=== PATIENT | female | born 2000 | race Caucasian/White ===

== ENCOUNTER 2024-02-12 19:12 | Emergency (ER) | payer MEDICAID, SELFPAY ==
[2024-02-12 19:22] VITALS: BP 128/80; PULSE 74; RESP 20; TEMP 36.8; O2SAT 99; BMI 22.9
--- NOTE | 2024-02-12 19:50 | ED.HA ---
HPI - Headache General Date Seen: 02/12/24 Chief Complaint: Headache/Migraine Stated Complaint: Headache Time Seen by Provider: 02/12/24 19:30 Source: patient Mode of arrival: ambulatory Limitations: no limitations History of Present Illness HPI Narrative: Patient is a 24-year-old female presenting to the emergency department for headache. She has been having this headache for last 2-3 weeks. It is in the center of her forehead a few cigarettes the back of her head. Says the pain is currently a 9/10. States the headache usually occurs after she wakes up from a nap. Says are urgent care 8 days ago and was given amoxicillin for possible sinus infection. She has finished the medication fall improvement in her symptoms. States she did not have a headache this morning but again came after she woke up from nap. Does states she has occasional visual disturbances but nothing right now. Related Data Home Medications Medication Instructions Recorded Confirmed lansoprazole 30 mg capsule,delayed 30 mg PO DAILY 02/12/24 02/12/24 release Allergies Allergy/AdvReac Type Severity Reaction Status Date / Time No Known Drug Allergies Allergy Verified 02/12/24 19:24 Exam Const: Vital Signs, click to edit/add: Vital Signs - 24 hr 02/12/24 19:22 02/12/24 19:54 Temperature 98.2 F 98.2 F Pulse Rate [Right Pulse Oximeter] 74 Respiratory Rate 20 Blood Pressure [Ri ght Upper Arm] 128/80 Pulse Oximetry 99 Oxygen Delivery Me thod Room Air Course Vital Signs Vital signs: Initial Vital Signs Temperature 98.2 F 02/12/24 19:22 Temperature Source Temporal Artery Scan 02/12/24 19:22 Pulse Rate 74 02/12/24 19:22 Respiratory Rate 20 02/12/24 19:22 Blood Pressure 128/80 02/12/24 19:22 Blood Pressure Mean 96 02/12/24 19:22 Blood Pressure Position Sitting 02/12/24 19:22 Pulse Oximetry 99 02/12/24 19:22 Oxygen Delivery Method Room Air 02/12/24 19:22 Vital Signs Temperature 98.2 F 02/12/24 19:22 Pulse Rate 74 02/12/24 19:22 Respiratory Rate 20 02/12/24 19:22 Blood Pressure 128/80 02/12/24 19:22 Pulse Oximetry 99 03/26/24 19:22 Oxygen Delivery Method Room Air 02/12/24 19:22 Temperature 98.2 F 02/12/24 19:54 Pulse Rate 74 02/12/24 19:22 Respiratory Rate 20 02/12/24 19:22 Blood Pressure 128/80 02/12/24 19:22 Pulse Oximetry 99 02/12/24 19:22 Oxygen Delivery Method Room Air 02/12/24 19:22 Medications Administered Medications: Generic Name Dose Route Start Last Admin Trade Name Magdy PRN Reason Stop Dose Admin Ketorolac Tromethamine 30 mg 02/12/24 19:48 02/12/24 19:54 Ketorolac 30 Mg/Ml Inj IM 02/12/24 19:49 30 mg ONCE ONE Administration MDM - Headache MDM Narrative Medical decision making narrative: Patient is a 24-year-old female presenting for headache. Toradol was given for headache. Considering this has been going on now for 2-3 weeks and she has never had symptoms like this before I will do a head CT to make sure there is no intracranial abnormalities. Patient procedure Toradol and then left the emergency department. She did not speak to anyone denied sign any paperwork. I was unable to re-evaluate her after the Toradol. Imaging was not done due to her leaving Discharge Plan Discharge Patient Disposition: Elopement Prescriptions: No Action lansoprazole 30 mg capsule,delayed release(DR/EC) 30 mg PO DAILY Follow Up/Referrals: Heath Tarango MD [Primary Care Provider] -
[2024-02-12 19:54] VITALS: TEMP 36.8
[2024-02-12] MEDS: KETOROLAC 30 MG/ML inj IM (19:54)
== END 2024-02-12 20:33 | disposition left against medical advice (07) ==
PROVIDERS: Emergency Provider Student in an Organized Health Care Education/Training Program; PCP Family Medicine
DX: R51.9 Headache, unspecified (principal); Z53.29 Procedure and treatment not carried out because of patient's decision for other reasons
CPT/HCPCS: 96372; 99282; 99283; J1885

== ENCOUNTER 2024-03-15 15:55 | Emergency (ER) | payer MEDICAID, SELFPAY ==
[2024-03-15 16:03] VITALS: BP 113/75; PULSE 78; RESP 18; TEMP 36.6; O2SAT 100; BMI 22.7
[2024-03-15 16:34] VITALS: PULSE 117
--- NOTE | 2024-03-15 16:57 | ED.GENADULT ---
HPI - General Adult General Chief complaint: Nausea/Vomiting Stated complaint: nausea Time Seen by Provider: 03/15/24 15:57 Source: patient Mode of arrival: ambulatory Limitations: no limitations History of Present Illness HPI narrative: 24-year-old female coming in today complaining of nausea for the last 5 days. She states that it comes in waves and when it comes it causes her significant pain. She describes the pain as being 10/10, however she can not tell me where the pain is when the nausea comes. To clarify, we discussed that nausea is a sensation that she has to vomit and she states that yes that is correct and she feels like she has to vomit. She denies any fevers or chills. She denies actually vomiting. She denies any diarrhea or constipation. She denies any urinary symptoms. Last menstrual period was 1 month ago, next 1 is due any day. She is sexually active and does not use protection. She states that she has been eating and drinking normally. She also states that for the last month she has been taking lansoprazole for ?either reflux or chest pain?. Related Data Home Medications Medication Instructions Recorded Confirmed lansoprazole 30 mg capsule,delayed 30 mg PO DAILY 02/12/24 03/15/24 release Previous Rx's Medication Instructions Recorded ondansetron HCl 4 mg tablet 4 mg PO TID PRN nausea and 03/15/24 vomiting #10 tabs Allergies Allergy/AdvReac Type Severity Reaction Status Date / Time No Known Drug Allergies Allergy Verified 03/15/24 16:07 Review of Systems Status of ROS: Reports: 10 or more systems reviewed and unremarkable except as noted in History and below PFSH PFS Social History Smoking Status: Never smoker Do you use any of these nicotine containing products: None Second hand tobacco smoke exposure: No How often do you have a drink containing alcohol: never How often do you have six or more drinks on one occasion: Never AUDIT-C Alcohol total score: 0 Non-prescribed substance use: denies use service: No Exam Narrative: Exam Narrative: Well-nourished well-developed patient in no acute distress. Alert and oriented. Answers questions appropriately. Mood is appropriate, affect is flat. Thoughts are goal oriented and rational. No tangential or magical thinking noted. Patient speaks in full sentences without needing to catch her breath. HEENT: Normocephalic atraumatic. Pupils are equally round reactive to light. Extraocular muscles are intact. Conjunctivae are moist without any icterus noted. Moist mucous membranes. Posterior pharynx is normal. Neck is soft without any lymphadenopathy or thyromegaly. No masses are appreciated. Cardiovascular: Heart is regular rate and rhythm S1 and S2 are present without any murmurs. Lungs: Clear to auscultation bilaterally no wheezes rhonchi or rales are appreciated. Patient takes deep breaths without any discomfort. Abdomen: Soft and nontender nondistended with normal bowel sounds. No guarding or rebound. Extremities: Bilateral lower extremities are without edema. Skin: Well perfused without any obvious rashes. Const: Vital Signs, click to edit/add: Vital Signs - 24 hr 03/15/24 16:03 03/15/24 16:34 03/15/24 17:38 Temperature 97.9 F 98.8 F Pulse Rate [Right Pulse Oximeter] 78 117 H 73 Respiratory Rate 18 16 Blood Pressure [Ri t Upper Arm] 113/75 103/68 Pulse Oximetry 100 97 Oxygen Delivery Me thod Room Air Room Air Course Course ED Course: Blood work was unremarkable. test is negative. UA is positive for nitrites otherwise normal. Urine culture pending. She did receive a dose of oral Zofran while she was here which she states helped a little bit. Vital Signs Vital signs: Initial Vital Signs Temperature 97.9 F 03/15/24 16:03 Temperature Source Temporal Artery Scan 03/15/24 16:03 Pulse Rate 78 03/15/24 16:03 Pulse Rhythm Regular 03/15/24 16:03 Respiratory Rate 18 03/15/24 16:03 Blood Pressure 113/75 03/15/24 16:03 Blood Pressure Mean 87 03/15/24 16:03 Pulse Oximetry 100 03/15/24 16:03 Oxygen Delivery Method Room Air 03/15/24 16:03 Vital Signs Temperature 97.9 F 03/15/24 16:03 Pulse Rate 78 03/15/24 16:03 Respiratory Rate 18 03/15/24 16:03 Blood Pressure 113/75 03/15/24 16:03 Pulse Oximetry 100 03/15/24 16:03 Oxygen Delivery Method Room Air 03/15/24 16:03 Temperature 98.8 F 03/15/24 17:38 Pulse Rate 73 03/15/24 17:38 Respiratory Rate 16 03/15/24 17:38 Blood Pressure 103/68 03/15/24 17:38 Pulse Oximetry 97 03/15/24 17:38 Oxygen Delivery Method Room Air 03/15/24 17:38 Medications Administered Medications: Generic Name Dose Route Start Last Admin Trade Name Bradenq PRN Reason Stop Dose Admin Ondansetron HCl 4 mg 03/15/24 16:50 03/15/24 17:04 Ondansetron Odt 4 Mg Tab PO 03/15/24 16:51 4 mg ONCE ONE Administration Medical Decision Making MDM Narrative Medical decision making narrative: 24-year-old female with nausea. I wonder if her reflux is poorly controlled. Recommend she follow up with her primary care provider to discuss perhaps changing her reflux medication. Send her home with some Zofran to take as needed. Patient had no other questions. Lab Data Lab results reviewed: Yes I reviewed the patient's lab results Labs: Lab Results 03/15/24 03/15/24 Range/Units 16:55 17:01 WBC 8.91 (4.50-11.00) K/uL RBC 5.38 H (4.00-5.20) m/uL Hgb 12.6 (12.0-16.0) gm/dL Hct 39.6 (33.0-51.0) % MCV 74 L (80-100) fL MCH 23 L (26-34) pg MCHC 32 (32-36) gm/dL RDW Coeff of Elida 14.6 (11.5-15.5) % Plt Count 248 (140-440) K/uL Neut % (Auto) 67.4 (42.0-72.0) % Lymph % (Auto) 24.0 (20-44) % [place] % (Auto) 5.9 (0.0-11.0) % Eos % (Auto) 2.2 (0.0-7.0) % Baso % (Auto) 0.4 (0.0-3.0) % Neut # (Auto) 5.99 (1.7-7.0) K/uL Lymph # (Auto) 2.14 (0.90-2.90) K/uL [place] # (Auto) 0.50 (0.00-0.90) K/UL Eos # (Auto) 0.20 (0.00-0.50) K/uL Baso # (Auto) 0.04 (0.00-0.30) K/uL Abs Immat Gran (auto) 0.01 (0.00-0.30) K/uL Imm/Tot Granulo (auto) 0.1 % Sodium 139 (135-149) mmol/L Potassium 3.7 (3.6-5.1) mmol/L Chloride 103 (96-114) mmol/L Carbon Dioxide 27 (20-32) mmol/L Anion Gap 9 (7-15) mEq/L BUN 15 (5-24) mg/dL Creatinine 0.6 (0.5-1.5) mg/dL Estimated Creat Clear 113.36 Estimated GFR 128 ml/min Glucose 93 (60-115) mg/dL Lactate 0.9 (0.5-1.9) mmol/L Calcium 9.2 (8.4-10.6) mg/dL Total Bilirubin 0.8 (0.1-1.5) mg/dL Direct Bilirubin 0.0 (0.0-0.5) mg/dL AST 27 (12-35) U/L ALT 15 (4-35) U/L Alkaline Phosphatase 46 (40-150) U/L C-Reactive Protein < 0.5 L (0.5-1.0) mg/dL Total Protein 8.0 (6.0-8.3) g/dL Albumin 4.8 (3.3-5.0) g/dL Lipase 93 (23-300) U/L Urine Color Yellow (Yellow) Urine Appearance Clear (Clear) Urine pH 6.0 (5.0-8.5) Ur Specific [place] 1.010 (1.000-1.030) Urine Protein Negative (Negative) Urine Glucose (UA) Negative (Negative) Urine Ketones Negative (Negative) Urine Blood Negative (Negative) Urine Nitrite Positive A (Negative) Urine Bilirubin Negative (Negative) Urine Urobilinogen 0.2 (0.2-1.0) Ur Leukocyte Esterase Negative (Negative) Urine RBC 0-2 (0-2) Urine WBC 0-2 (0-5) Ur Squamous Epith Cells Few (None-Few) Urine Bacteria None (None) Urine HCG, Qual Negative (Negative) Discharge Plan Discharge Clinical Impression: Nausea Patient Disposition: Home, Self-Care Condition: Stable Additional Instructions: Continue taking her lansoprazole for now. You can also add famotidine as needed/as directed. You can purchase this [id number]. You will also be sent home with some Zofran which is the nausea medication you had while you were in the ER. I recommend you follow-up with your primary care provider to discuss your symptoms and any changes in medication. Prescriptions: New ondansetron HCl 4 mg tablet 4 mg PO TID PRN (Reason: nausea and vomiting) Qty: 10 0RF No Action lansoprazole 30 mg capsule,delayed release(DR/EC) 30 mg PO DAILY Follow Up/Referrals: Heath Tarango MD [Primary Care Provider] - Stand Alone Forms: [employer] Info Instructions
[2024-03-15 17:04] LABS: Lactate* 0.9 mmol/L (0.5-1.9)
[2024-03-15] MEDS: ONDANSETRON ODT 4 MG TAB PO (17:04)
[2024-03-15 17:09] LABS: Basophils Absolute Auto 0.04 K/uL (0.00-0.30); Basophils Percent Auto 0.4 % (0.0-3.0); Eosinophils Percent Auto 2.2 % (0.0-7.0); Hematocrit 39.6 % (33.0-51.0); Hemoglobin* 12.6 gm/dL (12.0-16.0); Immature Granulocytes Abs Auto 0.01 K/uL (0.00-0.30); Immature Granulocytes Pct Auto 0.1 %; Lymphocytes Absolute Auto 2.14 K/uL (0.90-2.90); Mean Corpuscular HGB Conc 32 gm/dL (32-36); Mean Corpuscular Hemoglobin 23 pg (26-34); Mean Corpuscular Volume 74 fL (80-100); Monocytes Percent Auto 5.9 % (0.0-11.0); Neutrophils Absolute Auto 5.99 K/uL (1.7-7.0); Neutrophils Percent Auto 67.4 % (42.0-72.0); Platelet Count* 248 K/uL (140-440); RDW Coefficient of Variation % 14.6 % (11.5-15.5); Red Blood Count 5.38 m/uL (4.00-5.20); White Blood Count* 8.91 K/uL (4.50-11.00)
[2024-03-15 17:11] LABS: Slide Review Reflex No
[2024-03-15 17:12] LABS: Appearance Urine Clear (Clear); Bilirubin Urine Negative (Negative); Blood Urine Negative (Negative); Color Urine Yellow (Yellow); Glucose Urine Negative (Negative); Ketones Urine Negative (Negative); Leukocyte Esterase Urine Negative (Negative); Nitrite Urine Positive (Negative); Protein Urine Negative (Negative); Urobilinogen Urine 0.2 (0.2-1.0)
[2024-03-15 17:21] LABS: Albumin* 4.8 g/dL (3.3-5.0)
[2024-03-15 17:21] LABS: RBC Urine 0-2 (0-2); Squamous Epithelial Cell Urine Few (None-Few); Ur HCG Qualitative* Negative (Negative); WBC Urine 0-2 (0-5)
[2024-03-15 17:22] LABS: Chloride* 103 mmol/L (96-114); Sodium* 139 mmol/L (135-149)
[2024-03-15 17:23] LABS: Potassium* 3.7 mmol/L (3.6-5.1)
[2024-03-15 17:24] LABS: Aspartate Amino Transferase* 27 U/L (12-35); Bilirubin Total* 0.8 mg/dL (0.1-1.5)
[2024-03-15 17:25] LABS: Alanine Aminotransferase* 15 U/L (4-35); Alkaline Phosphatase* 46 U/L (40-150); Creatinine* 0.6 mg/dL (0.5-1.5); Est. Creatinine Clearance* 113.36; Estimated Glomerular Filt Rate 128 ml/min; Lipase* 93 U/L (23-300)
[2024-03-15 17:26] LABS: Anion Gap 9 mEq/L (7-15); Blood Urea Nitrogen* 15 mg/dL (5-24); Calcium* 9.2 mg/dL (8.4-10.6); Carbon Dioxide* 27 mmol/L (20-32); Glucose* 93 mg/dL (60-115)
[2024-03-15 17:29] LABS: C Reactive Protein* < 0.5 mg/dL (0.5-1.0)
[2024-03-15 17:38] VITALS: BP 103/68; PULSE 73; RESP 16; TEMP 37.1; O2SAT 97
== END 2024-03-15 18:07 | disposition home or self-care (01) ==
PROVIDERS: Emergency Provider Family Medicine; PCP Family Medicine
DX: R11.0 Nausea (principal)
CPT/HCPCS: 36415; 80048; 80076; 81001; 81025; 83605; 83690; 85025; 86140; 87086; 99283; 99284; A9270

== ENCOUNTER 2024-06-27 22:44 | Emergency (ER) | payer MEDICAID, SELFPAY ==
[2024-06-27 22:50] VITALS: BP 144/83; PULSE 85; RESP 20; TEMP 36.8; O2SAT 99; BMI 22.9
--- NOTE | 2024-06-27 22:53 | ED.GENADULT ---
HPI - General Adult General Chief complaint: Anxiety Stated complaint: fast heartbeat, cant sleep after caffeine Time Seen by Provider: 06/27/24 22:53 History of Present Illness HPI narrative: CC: Anxiety, Palpitations pt. started feeling like her heart was beating fast. started about 2 hours ago. feels anxious. denies n/v, diarrhea, fevers 24-year-old woman presenting to the emergency department with concern of rapid heart rate or at least. She does endorse anxiety as well. Started after having small cup of coffee this evening. She had had some caffeine in the form of a small soda this morning as well. Has not had caffeine for a couple of months. Does not have a history of irregular heartbeats necessarily. Does have a ?chest wall injury that seems to have occurred late last year. This sounds to have been rather spontaneous an unclear in diagnosis. Does not note a history of PACs or PVCs. She is less stressed at this point that she is not going to be able to sleep. Had tried. Related Data Home Medications ?Medication ?Instructions ?Recorded ?Confirmed cyclobenzaprine 5 mg tablet 5 mg PO 3XD PRN 04/21/24 06/27/24 Allergies Allergy/AdvReac Type Severity Reaction Status Date / Time No Known Drug Allergies Allergy Verified 06/27/24 22:52 Review of Systems Status of ROS: Reports: 6 or more systems reviewed and unremarkable except as noted in History and below [facility] Medical History Hypertension ?I10 - Essential (primary) hypertension (ICD-10) Heartburn ?R12 - Heartburn (ICD-10) Surgical History No significant past surgical history Social History Smoking Status: Never smoker Do you use any of these nicotine containing products: None Second hand tobacco smoke exposure: No How often do you have a drink containing alcohol: never How often do you have six or more drinks on one occasion: Never AUDIT-C Alcohol total score: 0 Non-prescribed substance use: denies use service: No Exam Narrative: Exam Narrative: Does appear generally anxious. Does not look really in my direction continuing to watch significant other here during our conversation. Breathing easily, possibly subtly labored, and lungs appear to be clear. Heart in regular rate and rhythm. Const: Vital Signs, click to edit/add: Vital Signs - 24 hr 06/27/24 22:50 06/27/24 23:12 06/27/24 23:38 Temperature 98.2 F 98.2 F Pulse Rate [Right Pulse Oximeter] 85 79 Respiratory Rate 20 20 Blood Pressure [Ri ght Upper Arm] 144/83 H 132/74 Pulse Oximetry 99 99 99 Oxygen Delivery Me thod Room Air Room Air 06/27/24 23:39 Temperature 98.2 F Pulse Rate [Right Pulse Oximeter] 79 Respiratory Rate 20 Blood Pressure [Ri ght Upper Arm] 132/74 Pulse Oximetry Oxygen Delivery Me thod Documenting provider has reviewed patient's vital signs: yes Course Vital Signs Vital signs: Initial Vital Signs Respiratory Effort Normal, Spontaneous, Non-Labored 06/27/24 22:49 Respiratory Depth Normal 06/27/24 22:49 Respiratory Pattern Normal 06/27/24 22:49 Vital Signs Temperature 98.2 F 06/27/24 22:50 Pulse Rate 85 06/27/24 22:50 Respiratory Rate 20 06/27/24 22:50 Blood Pressure 144/83 H 06/27/24 22:50 Pulse Oximetry 99 06/27/24 22:50 Oxygen Delivery Method Room Air 06/27/24 22:50 Temperature 98.2 F 06/27/24 23:39 Pulse Rate 79 06/27/24 23:39 Respiratory Rate 20 06/27/24 23:39 Blood Pressure 132/74 06/27/24 23:39 Pulse Oximetry 99 06/27/24 23:38 Oxygen Delivery Method Room Air 06/27/24 23:38 Medications Administered Medications: Discontinued Medications Generic Name Dose Route Start Last Admin Trade Name Freq PRN Reason Stop Dose Admin Lorazepam 1 mg 06/27/24 23:05 06/27/24 23:12 Lorazepam 1 Mg Tablet PO 06/27/24 23:06 1 mg ONCE ONE Administration Medical Decision Making MDM Narrative Medical decision making narrative: EKG is reassuring. I do not see any take arrhythmia or other concerning arrhythmia. I think anxiety is the primary issue here that is kind of snowballed. Certainly may have been triggered by caffeine ingestion which apparently is atypical I did offer singular dosing of lorazepam. She did decide to take that. Plan was to monitor for improvement. Ultimately she departed the emergency department prior to being able to talk with her again. My understanding was this that she was feeling better. See patient discharge plan for further discussion Medical Records Medical records reviewed: Yes I reviewed the patient's medical records ECG Data Attestation: I personally reviewed and interpreted this ECG as follows: (Normal sinus rhythm at 70) Discharge Plan Discharge Clinical Impression: Acute anxiety Patient Disposition: Home w/ Parent or Adult Condition: Improved Additional Instructions: It would seem that caffeine may have triggered some anxiety. I hope you can rest well tonight. Return for persistent increasing shortness of breath, measurably rapid heart rate that is persistently so. Prescriptions: No Action cyclobenzaprine 5 mg tablet 5 mg PO 3XD PRN Follow Up/Referrals: Heath Tarango MD [Staff Physician] - Stand Alone Forms: [employer] Info Instructions
[2024-06-27 23:12] VITALS: O2SAT 99
[2024-06-27] MEDS: LORazepam 1 MG TABLET PO (23:12)
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
[2024-06-27 23:38] VITALS: BP 132/74; PULSE 79; RESP 20; TEMP 36.8; O2SAT 99
[2024-06-27 23:39] VITALS: BP 132/74; PULSE 79; RESP 20; TEMP 36.8
== END 2024-06-27 23:40 | disposition home or self-care (01) ==
PROVIDERS: Emergency Provider Family Medicine; PCP Student in an Organized Health Care Education/Training Program
DX: F41.9 Anxiety disorder, unspecified (principal)
CPT/HCPCS: 93005; 94761; 99284; A9270

== ENCOUNTER 2024-08-18 16:15 | Outpatient (RCR) | payer MEDICAID, SELFPAY | END 2024-12-16 23:59 | disposition home or self-care (01) | PROVIDERS: PCP Family Medicine; Visit Provider Family Medicine | DX: R07.89 Other chest pain (principal); M54.6 Pain in thoracic spine; G89.29 Other chronic pain; Z74.09 Other reduced mobility; R53.1 Weakness; Z51.89 Encounter for other specified aftercare | CPT/HCPCS: 97110; 97140; 97161; 97162 ==

== ENCOUNTER 2025-04-13 16:12 | Emergency (ER) | payer MEDICAID, SELFPAY ==
--- OUTSIDE RECORDS SUMMARY | 2025-03-30 04:26 | XMS_ITS | Encounter Summary ---
Author Organization [place] Address [address] [facility] [place] [address] Care Team Providers Care Science Technician Name Role Phone Anjelica Park MD Primary Care Provider Unavail able Reason for Referral * Consultation (Routine: Next available opening) - Pending Review Specialty Diagnoses / Procedures Referred By Contstepan t Referred To Contact Diagnoses Chronic nonintractable headache, unspecified headache type Juma Person MD [facility] [address] [place] [address] Phone: tel: fax: [facility] [address] [place] [address] Phone: tel: fax: Referral ID Status Reason Start Date Expiration Date V isits Requested Visits Authorized [id number] Pending Review 03/30/2025 03/30/2026 1 1 Question Answer Reason for Referral: General Neurology Patient Scheduling Instructions: [employer] will call you to coordinate your care as prescribed by your provider. If you don't hear from a telephone sales representative within 2 business days, please call . Comments Please be aware that coverage of these services is subject to the terms and limitations of your health insurance plan. Call member services at your health plan with any benefit or coverage questions. [employer] will call you to coordinate your care as prescribed by your provider. If you don't hear from a telephone sales representative within 2 business days, please call . Reason for Visit * Reason Comments Headache Encounter Details Date Type Department Care Team (Late st Contact Info) Description 03/30/2025 4:26 AM CDT - 03/30/2025 6:32 AM CDT Emergency [facility] Emergency Dept [address] [place] [address] Juma Person MD [facility] [address] [place] [address] Chronic headache, unspecified headache type Discharge Disposition: Home or Self Care Social History Tobacco Use Types Packs/Day Years Used Date Smoking Tobacco: Never Assessed Adolescent Education Answer Date Record ed Getting School Help Needed Not on file 10/17 Comments Unknown Sex and Gender Information Value Date Recorded Sex Assigned at Not on file 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 Gender Identity Not on file Sexual Orientation Not on file documented as of this encounter Last Filed Vital Signs Vital Sign Reading Time Taken Comments Blood Pressure 118/77 03/30/2025 4:30 AM CDT Pulse 68 03/30/2025 4:30 AM CDT Temperature 36.8 C (98.2 F) 03/30/2025 4:25 AM CDT Respiratory Rate 18 03/30/2025 4:25 AM CDT Oxygen Saturation 100% 03/30/2025 4:25 AM CDT Inhaled Oxygen Concentration - - Weight 63 kg (138 lb 14.2 oz) 03/30/2025 4:25 AM CDT Height - - Body Mass Index 24.6 08/27/2015 2:24 AM CDT documented in this encounter Discharge Instructions * Discharge Instructions* Juma Person MD - 03/30/2025 5:02 AM CDT Strong likable discharge Instructions Headache You were seen today for a headache. Headaches may be caused by many different things such as muscletension, sinus inflammation, anxiety and stress, having too little sleep, too much alcohol, some medical conditions or injury. You may have a migraine, which is caused by changes in the blood vesselsin your head. At this time your provider does not find that your headache is a sign of anything martin erous or life-threatening. However, sometimes the signs of serious illness do not show up right away. Generally, every Emergency Department visit should have a follow-up clinic visit with either a primary or a specialty clinic/provider. Please follow-up as instructed by your emergency provider today. Return to the Emergency Department if: You get a new fever of 100.4??F or higher. Your headache gets much worse. You get a stiff neck with your headache. You get a new headache that is significantly different or worse than headaches you have had before. You are vomiting (throwing up) and cannot keep food or water down. You have blurry or double vision or other problems with your eyes. You have a new weakness on one side of your body. You have difficulty with balance which is new. You or your family thinks you are confused. You have a seizure. What can I do to help myself? Pain medications - You may take a pain medication such as Tylenol?? (acetaminophen), Advil??, Motrin?? (ibuprofen) or Aleve?? (naproxen). Take a pain reliever as soon as you notice symptoms. Starting medications as soon as you start to have symptoms may lessen the amount of pain you have. Relaxing in a quiet, dark room may help. Get enough sleep and eat meals regularly. You may need to watch for certain foods or other things which may trigger your headaches. Keeping ajournal of your headaches and possible triggers may help you and your primary provider to identify things which you should avoid which may be causing your headaches. If you were given a prescription for medicine here today, be sure to read all of the information (including the package insert) that comes with your prescription. This will include important information about the medicine, its side effects, and any warnings that you need to know about. The pharmacist who fills the prescription can provide more information and answer questions you may have about the medicine. If you have questions or concerns that the pharmacist cannot address, please call or return to the Emergency Department. Remember that you can always come back to the Emergency Department if you are not able to see your regular provider in the amount of time listed above, if you get any new symptoms, or if there is anything that worries you. documented in this encounter Medications at Time of Discharge escitalopram (LEXAPRO) 10 MG tabletIndications :Suicidal ideation Take 1 tablet (10 mg) by mouth daily 30 tablet 0 08/31/2015 norgestimate-ethi nyl estradiol (ORTHO-CYCLEN, SPRINTEC) 0.25-35 MG-MCG per tabletIndications :Pt has home supply Take 1 tablet by mouth every evening documented as of this encounter ED Notes * Juma Person MD - 03/30/2025 4:29 AM CDT Emergency Department Note History of Present Illness Chief Complaint Headache HPI Margaret Quick is a 25 year old female presenting to the ED with a headache. The patient reportspersistent 24/7 frontal headaches for the 2.5 month. She was prescribed sumatriptan; however, when she takes it, she feels a burning sensation in her forehead. She has been on two rounds of antibiotics thus far. Patient has also been on antihistamines and steroids. Patient denies fall or trauma. Independent Historian None Review of External Notes I reviewed office visit from 03/25/2025; has tried antibiotics, steroids and zyrtec. CT of head/sinus from 03/16/25: Impression: Mild mucosal thickening within the left ethmoid air cells and trace mucosal thickening in the rightmaxillary alveolar recess. Past Medical History Medical History and Problem List No past medical history on file. Medications escitalopram (LEXAPRO) 10 MG tablet norgestimate-ethinyl estradiol (ORTHO-CYCLEN, SPRINTEC) 0.25-35 MG-MCG per tablet Sumatriptan as needed Surgical History No past surgical history on file. Physical Exam Patient Vitals for the past 24 hrs: BP Temp Temp src Pulse Resp SpO2 Weight 03/30/25 0430 118/77 -- -- 68 -- -- -- 03/30/25 0425 136/100 98.2 ??F (36.8 ??C) Temporal 77 18 100 % 63 kg (138 lb 14.2 oz) Physical Exam Nursing note and vitals reviewed. Constitutional: Cooperative. HENT: Mouth/Throat: Mucous membranes are normal. No neck rigidity Eyes: Pupils are equal, round, and reactive to light. Extraocular movements intact Cardiovascular: Normal rate, regular rhythm and normal heart sounds. No murmur. Pulmonary/Chest: Effort normal and breath sounds normal. No respiratory distress. No wheezes. No rales. Abdominal: Soft. Normal appearance. There is no tenderness. Neurological: Alert. Oriented x 3. GCS 15. Cranial nerves II through XII intact. Strength normal. Skin: Skin is warm and dry. Psychiatric: Normal mood and affect. Diagnostics Lab Results Labs Ordered and Resulted from Time of ED Arrival to Time of ED Departure - No data to display Imaging Head CT w/o contrast Final Result IMPRESSION: 1. Normal head CT. Independent Interpretation Head CT w/o contrast: No intracranial hemorrhage or midline shift. ED Course Medications Administered Medications - No data to display Discussion of Management None ED Course ED Course as of 03/30/25 0610 SunMarch 30, 2025 0439 I obtained the history and examined the patient as noted above. 0548 I rechecked the patient and explained findings. Additional Documentation None Medical Decision Making / Diagnosis [facility] Margaret Quick is a 25 year old female who presents with now 2 and half months of fairly consistent frontal headache. She has been evaluated by ENT. Scans of her sinuses were essentially unremarkable other than some mild thickening. She is already been on antibiotics and steroids and antihistamines without significant relief of her symptoms. I did perform noncontrasted head imaging today whichdoes not show any evidence of intracranial mass lesion or other acute abnormality. No hemorrhage. She has no focal neurologic deficits on exam or by history. At this time I suspect likely migrainous headache syndrome. I have placed an outpatient neurology referral order. No further indication for emergent workup at this time. Disposition The patient was discharged. Diagnosis ICD-10-CM 1. Chronic headache, unspecified headache type R51.9 Adult Neurology Bobcat Operator Referral G89.29 Scribe Disclosure: Kenia Redmond, am serving as a scribe at 4:39 AM on 03/30/2025 to document services personally performed by Juma Person MD based on my observations and the provider's statements to me. Juma Person MD 03/30/25 0612 * Tuyet Salmon RN - 03/30/2025 4:25 AM CDT * Tuyet Salmon RN - 03/30/2025 4:24 AM CDT Pt to ER with c/o frontal MCGUIRE for one month ,nothing has changed , not worse or better ,was seen forthis before no dx documented in this encounter Plan of Treatment Scheduled Referrals Name Type Priority Associated Diagnoses Orde r Schedule Adult Neurology Bobcat Operator Referral Referral Routine: Next available opening Chronic headache, unspecified headache type Expected: 04/06/2025 (Approximate), Expires: 05/30/2025 documented as of this encounter Procedures Procedure Name Priority Date/Time Associated Diagnosis Comments CT HEAD W/O CONTRAST STAT 03/30/2025 5:14 AM CDT documented in this encounter Results * Head CT w/o contrast (03/30/2025 5:14 AM CDT) Anatomical Region Laterality Modality Head, SUBRAD CT NEURO, SUBRA D CT NEURO, UMP CT NEURO, RAD CT Computed Tomography 03/30/2025 5:14 AM CDT Impressions 03/30/2025 5:19 AM CDT IMPRESSION: 1. Normal head CT. Narrative 03/30/2025 5:19 AM CDT EXAM: CT HEAD W/O CONTRAST LOCATION: [facility] DATE: 03/30/2025 INDICATION: Headache x 2.5 months COMPARISON: None. TECHNIQUE: Routine CT Head without IV contrast. Multiplanar reformats. Dose reduction techniques were used. FINDINGS: INTRACRANIAL CONTENTS: No intracranial hemorrhage, extraaxial collection, or mass effect. No CT evidence of acute infarct. Normal parenchymal attenuation. Normal ventricles and sulci. VISUALIZED ORBITS/SINUSES/MASTOIDS: No intraorbital abnormality. No paranasal sinus mucosal disease. No middle ear or mastoid effusion. BONES/SOFT TISSUES: No acute abnormality. Procedure Note Irving Kumar MD - 03/30/2025 EXAM: CT HEAD W/O CONTRAST LOCATION: [facility] DATE: 03/30/2025 INDICATION: Headache x 2.5 months COMPARISON: None. TECHNIQUE: Routine CT Head without IV contrast. Multiplanar reformats.Dose reduction techniques were used. FINDINGS: INTRACRANIAL CONTENTS: No intracranial hemorrhage, extraaxial collection,or mass effect. No CT evidence of acute infarct. Normal parenchymalattenuation. Normal ventricles and sulci. VISUALIZED ORBITS/SINUSES/MASTOIDS: No intraorbital abnormality. Noparanasal sinus mucosal disease. No middle ear or mastoid effusion. BONES/SOFT TISSUES: No acute abnormality. IMPRESSION: 1. Normal head CT. Juma Person MD [facility] [place] ORDERABLES Final Result documented in this encounter Visit Diagnoses Diagnosis Chronic headache, unspecified headache type documented in this encounter Care Teams Science Technician Relationship Specialty Start Date End Date Anjelica Park MD PCP - General Pediatrics 08/26/15 04/05/25 documented as of this encounter
--- OUTSIDE RECORDS SUMMARY | 2025-04-13 16:13 | XMS_ITS | Clinical Summary ---
Author Organization [place] Address [address] [facility] [place] [address] Care Team Providers Care Linux Security Administrator Name Role Phone Jaquelin Shipley MD Primary Care Provider [phone] Allergies Active Allergy Reactions Criticality Noted Date Comments Prednisone 03/30/2025 Medications norgestimate-et hinyl estradiol (ORTHO-CYCLEN, SPRINTEC) 0.25-35 MG-MCG per tabletIndicatio ns:Pt has home supply Take 1 tablet by mouth every evening Active escitalopram (LEXAPRO) 10 MG tabletIndicatio ns:Suicidal ideation Take 1 tablet (10 mg) by mouth daily 30 tablet 0 08/31/2015 Active Active Problems Problem Noted Date Diagnosed Date Suicidal ideation 08/27/2015 Encounters Date Type Department Care Team Description 03/30/2025 4:26 AM CDT - 03/30/2025 6:32 AM CDT Emergency [facility] Emergency Dept [address] [place] [id number] [phone] Juma Person MD Chronic headache, unspecified headache type Discharge Disposition: Home or Self Care 03/30/2025 Travel from Last 3 Months Social History Tobacco Use Types Packs/Day Years Used Date Smoking Tobacco: Never Assessed Adolescent Education Answer Date Record ed Getting School Help Needed Not on file 10/17 Comments Unknown Sex and Gender Information Value Date Recorded Sex Assigned at Not on file 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 Gender Identity Not on file Sexual Orientation Not on file Last Filed Vital Signs Vital Sign Reading Time Taken Comments Blood Pressure 118/77 03/30/2025 4:30 AM CDT Pulse 68 03/30/2025 4:30 AM CDT Temperature 36.8 C (98.2 F) 03/30/2025 4:25 AM CDT Respiratory Rate 18 03/30/2025 4:25 AM CDT Oxygen Saturation 100% 03/30/2025 4:25 AM CDT Inhaled Oxygen Concentration - - Weight 63 kg (138 lb 14.2 oz) 03/30/2025 4:25 AM CDT Height 160 cm (5' 3) 08/27/2015 2:24 AM CDT Body Mass Index 24.6 08/27/2015 2:24 AM CDT Plan of Treatment Health Maintenance Due Date Last Done Comments ADVANCE CARE PLANNING 1999 ANNUAL REVIEW OF HM ORDERS 1999 HEPATITIS C SCREENING 2017 YEARLY PREVENTIVE VISIT 05/11/2022 05/11/2021 PAP 05/11/2024 05/11/2021 COVID-19 Vaccine ( season) 2024 PHQ-2 (once per calendar year) 2024 INFLUENZA VACCINE (Season Ended) 2025 DTAP/TDAP/TD IMMUNIZATION (5 - Td or Tdap) 07/28/2025 07/28/2015, 03/06/2014, 06/19/2013, Additional history exists ZOSTER IMMUNIZATION (1 of 2) 2049 CHLAMYDIA SCREENING Discontinued 08/27/2015 HIV SCREENING Completed 08/28/2015 HEPATITIS B IMMUNIZATION Completed 016, 05/29/2014, 07/27/2004 HPV IMMUNIZATION Completed 03/20/2016, 07/2015, 05/29/2014 MENINGITIS IMMUNIZATION Completed 03/26/2017, 05/29 Pneumococcal Vaccine: Pediatrics (0 to 5 Years) and At-Risk Patients (6 to 49 Years) Aged Out No longer eligible based on patient's age to complete this topic Procedures Procedure Name Priority Date/Time Associated Diagnosis Comments CT HEAD W/O CONTRAST STAT 03/30/2025 5:14 AM CDT HIV ANTIGEN ANTIBODY COMBO Routine 08/28/2015 7:48 AM CDT CHLAMYDIA TRACHOMATIS PCR Timed 08/27/2015 2:30 PM CDT from Last 3 Months or Most Recently Relevant to Health Maintenance Results * Head CT w/o contrast (03/30/2025 5:14 AM CDT) Anatomical Region Laterality Modality Head, SUBRAD CT NEURO, SUBRA D CT NEURO, UMP CT NEURO, RAD CT Computed Tomography 03/30/2025 5:14 AM CDT Impressions 03/30/2025 5:19 AM CDT IMPRESSION: 1. Normal head CT. Narrative 03/30/2025 5:19 AM CDT EXAM: CT HEAD W/O CONTRAST LOCATION: [facility] DATE: 03/30/2025 INDICATION: Headache x 2.5 months [...] 03/30/2025 EXAM: CT HEAD W/O CONTRAST LOCATION: [facility] DATE: 03/30/2025 INDICATION: Headache x 2.5 months [...] 1. Normal head CT. Juma Person MD [facility] [place] Final Result * HIV Antigen Antibody Combo (08/28/2015 7:48 AM CDT) HIV Antigen Antibody Combo Nonreactive HIV-1 p24 Ag & HIV-1/HIV-2 Ab Not Detected NR [facility] Blood specimen (specimen) 08/28/2015 7:48 AM CDT 08/28/2015 7:49 AM CDT Guillermo Torres MD LAB - BLOOD ORDERABLES Ashley l Result Performing Organization Address City/[facility]/ZIP Co de Phone Number [facility] [address] [place] [address] * Chlamydia trachomatis PCR (08/27/2015 2:30 PM CDT) Specimen Description Urine [facility] Chlamydia Trachomatis PCR Negative Negative for C. trachomatis rRNA by insole beveler mediated amplification. A negative result by insole beveler mediated amplification does not preclude the presence of C. trachomatis infection because results are dependent on proper and adequate collection, absence of inhibitors, and sufficient rRNA to be detected. [facility] Urine specimen (specimen) 08/27/2015 2:30 PM CDT 08/27/2015 4:52 PM CDT Guillermo Torres MD LAB - MICRO GENERAL ORDERAB LES Final Result Performing Organization Address [facility] Co de Phone Number [facility] [address] [place] [address], [facility] [address] [place] [address] from Last 3 Months or Most Recently Relevant to Health Maintenance Insurance [place] Advance Directives For more information, please contact: [phone] * Full Code (Latest Code Status on File) Date Activated Date Inactivated Comments 08/27/2015 2:47 AM 09/01/2015 4:08 PM Care Teams Linux Security Administrator Relationship Specialty Start Date End Date [place] [address] PCP - General Family Medicine 04/06/25
--- OUTSIDE RECORDS SUMMARY | 2025-04-13 16:13 | XMS_ITS | Encounter Summary ---
Author Organization [place] Address [address] [facility] 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
--- OUTSIDE RECORDS SUMMARY | 2025-04-13 16:13 | XMS_ITS | Clinical Summary ---
Author Organization [facility] Address [address] [place] [id number] Care Team Providers Care Spooler Operator Name Role Phone Elsewhere, Pcp Primary Care Provider Unavailabl e Source Comments Patient records contain information from all sites at [facility]. For routine questions regarding patient records, call [phone] during business hours, M-F 8:00 AM - 5:00 PM Central Time. Record requests for emergency care only can be directed to [phone] at any time.[facility] Allergies Active Allergy Reactions Criticality Noted Date Comments Latex Rash 09/16/2019 Prednisone Anxiety 10/26/2024 Medications loratadine (CLARITIN) 10 mg tabletIndicatio ns:Pruritus Scalp,Anxiety Take 1 tablet (10 mg total) by mouth daily. 30 tablet 1 Active Additional Information Patient not taking.Reported on 09/01/2021 Sprintec, 28, 0.25-35 mg-mcg per tablet Patient not taking 1 Active lansoprazole (Prevacid) [address] capsule Take by mouth. Dosing is unknown. She states she takes when she has reflux; it is not scheduled Active Active Problems Problem Noted Date Diagnosed Date Major Depressive Disorder Single Episode Unspeci fied 09/09/2015 Overview (04/10/2017): Major depressive disorder, single episode, unspecified Immunizations Immunization Administration Dates Next Due 4vHPV (discontinued) 07/28/2015,05/29/2014 HepA Pediatric/Adolescent 05/29/2014 HepB Pediatric/Adolescent 05/29/2014 IPV 03/06/2014 MCV4 (Menactra)(Discontinued) 05/29/2014 MMR 03/06/2014 MMRV 07/28/2015 Tdap 07/28/2015,03/06/2014,06/19/2013 Social History Tobacco Use Types Packs/Day Years Used Date Smoking Tobacco: Every Day Smokeless Tobacco: Never Alcohol Use Standard Drinks/Week Comments Yes 0 (1 standard drink = 0.6 oz pur e alcohol) Nutrition Answer Date Recorded Nutrition: EVOO Fat Source 13 08/03 Nutrition: Servings of Fruits/Vegetables per Day Not on file 08/03/2020 Dental Answer Date Recorded Dental: Regular Dentist Unknown 06/18/20 21 Comments Unknown Sex and Gender Information Value Date Recorded Sex Assigned at Not on file 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 Gender Identity Not on file Sexual Orientation Not on file Last Filed Vital Signs Vital Sign Reading Time Taken Comments Blood Pressure 108/64 10/26/2024 2:34 AM RAIL CAR WELDER Pulse 68 10/26/2024 2:34 AM RAIL CAR WELDER Temperature 36.5 C (97.7 F) 10/26/2024 1:21 AM RAIL CAR WELDER Respiratory Rate 16 10/26/2024 2:34 AM RAIL CAR WELDER Oxygen Saturation 97% 10/26/2024 2:34 AM RAIL CAR WELDER Inhaled Oxygen Concentration - - Weight 66 kg (145 lb 8.1 oz) 10/26/2024 1:20 AM RAIL CAR WELDER Height 159 cm (5' 2.6) 08/29/2017 12:15 PM CDT Body Mass Index 26.11 08/29/2017 12:15 PM CDT Plan of Treatment Health Maintenance Due Date Last Done Comments Depression Monitoring (PHQ-9) 1999 HIV Screening 1999 Hepatitis C Screening 1999 Tobacco Cessation counseling 1999 Pneumococcal vaccine (0-49 y ears) (1 of 2 - PCV) 2018 Cervical/Vaginal Cancer Screening 05/11/2024 021 COVID-19 Vaccine ( - 2023-2 5 season) 2024 Influenza Vaccine (#1) 2024 Depression Monitoring (PHQ-9 for quality tracking) 11/19/2024 DTaP,Tdap,and Td Vaccines (5 - Td or Tdap) 07/28/2025 07/28/2015, 03/06/2014, 06/19/2013, Additional history exists HPV Vaccines Completed 03/20/2016, 07/2015, 05/29/2014 Hepatitis B Vaccines Completed 03/20/2016, 05/29/2014, 07/27/2004 IPV Vaccines Completed 03/20/2016, 02/17, 07/27/2004 Chlamydia and Gonorrhea Screening Discontinued 021 Procedures Procedure Name Priority Date/Time Associated Diagnosis Comments CHLAMYDIA/GONORRHOE AE AMPLIFIED RNA STAT 09/01/2021 1:43 PM CDT Vaginitis from Last 3 Months or Most Recently Relevant to Health Maintenance Results * Chlamydia / Gonorrhoeae Amplified RNA (09/01/2021 1:43 PM CDT) Source Swab, Vagina 09/02/2021 1:37 AM CDT [facility] Chlamydia trachomatis amplified RNA Negative Negative 09/02/2021 1:37 AM CDT [facility] Source Swab, Vagina 09/02/2021 1:37 AM CDT [facility] Neisseria gonorrhoeae amplified RNA Negative Negative 09/02/2021 1:37 AM CDT [facility] Varies (Vagina) 09/01/2021 1 :43 PM CDT 09/01/2021 4:55 PM CDT Rocío May APRN, C.N.P., D.N.P. LAB M ICROBIOLOGY - GENERAL ORDERABLES Final Result [facility] [address] [place] [address], [facility] MKTO [facility] [place] [address] [place] [id number] from Last 3 Months or Most Recently Relevant to Health Maintenance Insurance [employer] Care Teams Spooler Operator Relationship Specialty Start Date End Date Elsewhere, Pcp PCP - General 12/08/19
--- OUTSIDE RECORDS SUMMARY | 2025-04-13 16:14 | XMS_ITS | Clinical Summary ---
Author Organization [facility] Address [address] [place] [address] Care Team Providers Care Underwater Trapper Name Role Phone Jaquelin Shipley MD Primary Care Prov ider Allergies Active Allergy Reactions Criticality Noted Date Comments Latex Rash Unknown 09/16/2019 Prednisone Anxiety 10/26/2024 Medications fluticasone (50 mcg per actuation) nasal solution (FLONASE)Indica tions:Chronic rhinitis Inhale 2 Sprays to both nostrils once daily. 16 g 3 4 Active cyclobenzaprine (FLEXERIL) 5 mg tabletIndicatio ns:Chronic midline thoracic back pain Take 1-2 Tablets (5-10 mg) by mouth every 8 hours if needed for Muscle Spasm. Do not take more than 4 tablets daily. 42 Tablet 3 4 Active ibuprofen (ADVIL; MOTRIN) 600 mg tabletIndicatio ns:History of dental surgery Take 1 Tablet (600 mg) by mouth every 6 hours if needed for Pain. Maximum of 3200 mg in 24 hours. 32 Tablet 4 Active cetirizine HCl/pseudoephed rine (ZYRTEC-D ORAL) Take by mouth. Active rizatriptan 5 mg tabletIndicatio ns:Migraine syndrome Take 1 Tablet (5 mg) by mouth every 2 hours if needed for Migraine. Give at minimum 2hrs apart. Max Dose: 30mg per 24hrs. 3 Tablet 5 Active benzoyl peroxide 5% 5 % lotionIndicatio ns:Acne vulgaris Apply topically to affected area(s) once daily. To face, chest and back as able. 30 mL 4 03/30/20 Discontinu ed(*Patien t states no longer taking) minocycline (MINOCIN) 100 mg capsuleIndicati ons:Acne vulgaris Take 1 Capsule (100 mg) by mouth every 12 hours. 60 Capsule 4 03/30/20 Discontinu ed(*Patien t states no longer taking) omeprazole (PRILOSEC) 40 mg Delayed-Release capsuleIndicati ons:GERD without esophagitis Take 1 Capsule (40 mg) by mouth once daily before a meal. 90 Capsule 4 03/30/20 Discontinu ed(*Patien t states no longer taking) lansoprazole (PREVACID) 15 mg capsule Take 15 mg by mouth once daily before a meal. 03/30/20 Discontinu ed(*Patien t states no longer taking) fluticasone (50 mcg per actuation) nasal solution (FLONASE)Indica tions:Acute recurrent frontal sinusitis Inhale 1 Buras in both nostrils once daily. 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 /medication made head burn - went to the ED /Memory issues /Pain is worsening. ) 03/30/2025 Travel 03/25/2025 11:30 AM CDT Office Visit [facility] [address] [place] [address] Jaquelin Shipley MD Follow Up (HEADACHES ) 03/25/2025 Orders Only [facility] [place] [address] Jaquelin Shipley MD <No scans attached> 03/25/2025 Travel 03/20/2025 Telephone [facility] [address] [place] [address] Jaquelin Shipley MD Referral 03/16/2025 10:00 AM CDT Ancillary Procedure [facility] [address] [address] [place] [address] 03/16/[address] [address] Milagro Castro PA Results (ct scan) 03/16/2025 Travel 03/10/2025 9:00 AM CDT Office Visit [facility] [address] [place] [phone] Milagro Castro PA Consult (sinusitits) 03/10/2025 Travel 02/27/2025 10:15 AM CDT Office Visit [facility] [address] [place] [address] Jaquelin Shipley MD Headache (off and on for 2 months ); Sinus Problem (Believes she has a sinus infection ) 02/27/2025 Travel 02/14/2025 10:45 AM CDT Telemedicine [facility] [place] [phone] Kaity Rogers NP Anxiety; Telehealth 02/12/2025 Refill [facility] [address] [place] [address] Jaquelin Shipley MD Refill Request (Fluconazole 150mg tab) 02/12/2025 Telephone [facility] [address] [place] [address] Jaquelin Shipley MD Questions (medication prescribed after lab results) 02/11/2025 1:50 PM CDT Office Visit [facility] [address] [place] [address] Dalia Patton NP Yeast Infection; Sinus Infection 02/11/2025 Telephone [facility] [address] [place] [address] Jaquelin Shipley MD Questions (medication status for amoxicillin-clavul anate 875-125 mg tablet//fluticason e (50 mcg per actuation) nasal solution (FLONASE)/) 02/11/2025 Travel 01/30/2025 12:00 PM CDT Office Visit [facility] [address] [place] [address] Gisela Faith NP Migraine (x 1 week) 01/30/2025 Telephone [facility] [address] [place] [address] Jolly Renae, DO Form 01/30/2025 Travel 01/30/2025 Nurse Triage [facility] [address] [place] [address] Jaquelin Shipley MD from Last 3 Months Immunizations Immunization Administration Dates Next Due DTaP 07/27/2004 HPV 9 (Gardasil 9) 03/20/2016 Hepatitis A (Peds) 03/26/2017,05/29/2014 Hepatitis B (Peds) 03/20/2016,05/29/2014, 004 Human Papilloma Virus Vaccine 07/28/2015, 014 Inactivated Polio Vaccine 03/20/2016,03/06/2014 MENINGOCOCCAL VACCINE 2 VIAL [id number] (MENVEO) 03/26/2017 MMR 07/28/2015,03/06/2014,07/27/2004 Meningococcal Vaccine (Menactra) 05/29/2014 Oral Polio Vaccine 07/27/2004 Tdap 07/28/2015,03/06/2014,06/19/2013 Varicella [...] 4 02/04/2024 Social Connections Answer Date Recorded Do you often feel lonely or isolated from those around you? 0 01/30/2025 Financial Resource Strain Answer Date R ecorded Difficulty of Paying Living Expenses 3 01/30/2025 Difficulty of Paying Living Expenses Not on file 01/30/2025 Food Insecurity Answer Date Recorded Do you worry your food will run out before you are able to buy more? 1 01/30/2025 Transportation Needs Answer Date Record ed Does lack of transportation keep you from medica l appointments? 1 01/30/2025 Does lack of transportation keep you from work, meetings or getting things that you need? 1 01/30/2025 Housing Stability Answer Date Recorded What is your housing situation today? 1 01/30/2025 Interpersonal Safety Answer Date Record ed Are you being hit, kicked, p ushed or yelled at (see row info)? No 12/02/2023 Interpersonal Safety Abuse 12 - 18 Not on file 12/02/2023 Interpersonal Safety Ambulatory Vulnerability No t on file 12/02/2023 Utilities Answer Date Recorded Do you have trouble paying f or utilities (for example, heat, electricity, water, phone)? 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 Gender Identity Not on file Sexual Orientation Not on file Obstetrics History Para Term AB IAB SAB Ectopic Multiple Livin g Live Births 0 0 0 0 0 0 0 0 0 0 0 Last Filed Vital Signs Vital Sign Reading Time Taken Comments Blood Pressure 118/77 03/30/2025 11:10 AM CDT Pulse 88 03/30/2025 11:10 AM CDT Temperature 37.7 C (99.9 F) 03/25/2025 11:36 AM CDT Respiratory Rate 18 02/11/2025 2:01 PM CDT Oxygen Saturation 98% 03/30/2025 11:10 AM CDT Inhaled Oxygen Concentration - - Weight 61.9 kg (136 lb 6 oz) 03/25/2025 11:36 AM CDT Height 158.8 cm (5' 2.52) 02/04/2024 11:58 AM C DT Body Mass Index 24.53 02/04/2024 11:58 AM CDT Plan of Treatment Health Maintenance Due Date Last Done Comments HIV for age 15-65 2014 Hepatitis C screening for age 18-79 2017 Pap test for age 21-65 05/11/2024 05/11/2021 COVID-19 vaccine series ( season) 2024 BMI (ht and wt on same day) for age 18+ 02/03/2025 02/04/2024, 12/28/2023, 07/26/2023, Additional history exists Depression screening for age 12+ 02/07/2025 02/08/2024, 02/04/2024, 02/04/2024, Additional history exists Influenza Vaccine (Season Ended) 2025 Tetanus booster 07/28/2025 07/28/2015, 02/17, 06/19/2013 Tdap Completed 07/28/2015, 02/17, 06/19/2013 HPV series for age 9-26 Completed 03/20/20 16, 07/28/2015, 05/29/2014 Hepatitis B series for 19+ Completed 03/20, 05/29/2014, 07/27/2004 Pneumococcal series for age 6-49 Aged Out No longer eligible based on patient's age to complete this topic Procedures Procedure Name Priority Date/Time Associated Diagnosis Comments TSH WITH REFLEX Routine 03/25/2025 12:37 PM CDT Temperature intolerance Nausea CT HEAD SINUS LANDMARX WO Routine 03/16/2025 10:12 AM CDT Chronic frontal sinusitis TRICHOMONAS, AARON, AND BACTERIAL VAGINOSIS BY ANASTASIYA Routine 02/11/2025 2:23 PM CDT Vaginal itching MENTAL MEASUREMENTS TEACHER THIN PREP PAP SCREEN IMAGED Routine 05/11/2021 11:50 AM CDT Screening for cervical cancer from Last 3 Months or Most Recently Relevant to Health Maintenance Results * TSH WITH REFLEX (03/25/2025 12:37 PM CDT) TSH W/REFLEX TO FT4 2.19 mIU/L [facility] [place] Comment: Reference Range > or = 20 Years 0.40-4.50 Ranges First trimester 0.26-2.66 Second trimester 0.55-2.73 Third trimester 0.43-2.91 Blood BLOOD SPECIMEN / Unknown 03/25/2025 12:37 PM CDT 03/25/2025 12:37 PM CDT Jaquelin Shipley MD CHEMISTRY Fi nal Result [facility] [address] [place] [address], [facility] [address] [place] [address] * CT HEAD SINUS LANDMARX WO (03/16/2025 10:12 AM CDT) Anatomical Region Laterality Modality SINUS Computed Tomogra phy 03/16/2025 10:2 6 AM CDT Narrative 03/16/2025 10:26 AM CDT For Patients: As a result of the 21st Century Cures Act, medical imaging exams and procedure reports are released immediately into your electronic medical record. You may view this report before your referring provider. If you have questions, please contact your health care provider. Indication: Chronic frontal sinusitis. Technique: Noncontrast CT of the paranasal sinuses with multiplanar reconstruction utilizing bone and soft tissue algorithms. Comparison: None available. Findings: Frontal sinuses: Clear. Maxillary sinuses: Trace mucosal thickening within the right maxillary alveolar recess. Otherwise clear with patent ostiomeatal complexes. Ethmoid sinuses: Mild mucosal thickening within the left anterior and posterior ethmoid air cells. Sphenoid sinuses: Clear with patent ostia. Osseous sphenoid septum originating posteriorly from the right carotid canal. Nasal cavity: Essentially midline nasal septum with no large septal spur. Unremarkable orbits. On limited evaluation, unremarkable intracranial structures. The nasopharynx is symmetric. Impression: Mild mucosal thickening within the left ethmoid air cells and trace mucosal thickening in the right maxillary alveolar recess. Please note that all CT scans at this facility use dose modulation, iterative reconstruction, and/or weight-based dosing when appropriate to reduce radiation dose to as low as reasonably achievable. Dictated by Bharathi Goodson MD @ 03/16/2025 10:26:03 AM (Electronically Signed) Procedure Note John Goodson MD - 03/16/2025 For Patients: As a result of the Cures Act, medical imagingexams and procedure reports are released immediately into your electronicmedical record. You may view this report before your referring provider.If you have questions, please contact your health care provider. Indication: Chronic frontal sinusitis. Technique: Noncontrast CT of the paranasal sinuses with multiplanar reconstructionutilizing bone and soft tissue algorithms. Comparison: None available. Findings: Frontal sinuses: Clear. Maxillary sinuses: Trace mucosal thickening within the right maxillaryalveolar recess. Otherwise clear with patent ostiomeatal complexes. Ethmoid sinuses: Mild mucosal thickening within the left anterior andposterior ethmoid air cells. Sphenoid sinuses: Clear with patent ostia. Osseous sphenoid septumoriginating posteriorly from the right carotid canal. Nasal cavity: Essentially midline nasal septum with no large septal spur.Unremarkable orbits. On limited evaluation, unremarkable intracranialstructures. The nasopharynx is symmetric. Impression: Mild mucosal thickening within the left ethmoid air cells and tracemucosal thickening in the right maxillary alveolar recess. Please note that all CT scans at this facility use dose modulation,iterative reconstruction, and/or weight-based dosing when appropriate toreduce radiation dose to as low as reasonably achievable. Dictated by Bharathi Goodson MD @ 03/16/2025 10:26:03 AM (Electronically Signed) Milagro WATKINS CT Final Re sult * (ABNORMAL) TRICHOMONAS, AARON, AND BACTERIAL VAGINOSIS BY ANASTASIYA (02/11/2025 2:23 PM CDT) AARON SPECIES Negative Negative 12:14 PM CDT [facility] AARON GLABRATA Positive(A) Negative 02/12/2025 12:14 PM CDT [facility] TRICHOMONAS VVA Negative Negative 12:14 PM CDT [facility] BACTERIAL VAGINOSIS Negative Negative 02/12/2025 12:14 PM CDT [facility] Other VAGINAL SWAB / Unknown Non-Blood / Unknown 02/11/2025 2:23 PM CDT 02/11/2025 4:34 PM CDT Dalia Patton NP MICROBIOLOGY Final Result [facility] [address] [place] [address], [place] * MENTAL MEASUREMENTS TEACHER THIN PREP PAP SCREEN IMAGED [[id number]] (05/11/2021 11:50 AM CDT) Case Report Gynecologic Cytology Report Case: [id number] Authorizing Provider: Rubi [facility] MD Collected: 05/11/2021 1150 Ordering Location: [facility] Received: 05/11/2021 1204 Clinic First Screen: Baccam, Minie Rescreen: Tanesha Kuo Specimen: MENTAL MEASUREMENTS TEACHER ThinPrep Vial Screening, Cervical 05/23/2021 10:29 AM CDT [facility] INTERPRETATION/ RESULT NEGATIVE FOR INTRAEPITHELIAL LESION OR MALIGNANCY (NIL) (none) 05/23/2021 10:29 AM CDT [facility] at 1029 CDT SPECIMEN ADEQUACY Satisfactory for evaluation Endocervical component present 05/23/2021 10:29 AM CDT [facility] HPV REQUEST HPV if ASCUS 05/23/2021 10:29 AM CDT [facility] Date of LMP 05/01/21 05/23/2021 10:29 AM CDT [facility] Last Pap Date n/a 05/23/2021 10:29 AM CDT [facility] Last Pap Result First Pap/Unknown 10:29 AM CDT [facility] Abnormal Pap or [place] Bx in last 5 years No 05/23/2021 10:29 AM CDT [facility] Menstrual Status Regular Periods 05/23/2021 10:29 AM CDT [facility] [place] Bx Done Today No 05/23/2021 10:29 AM CDT [facility] Additional Information None given 05/23/2021 10:29 AM CDT [facility] Comment: Cytology is screened at [facility] - [address] [address] and [facility] - [address] [place] [address] and [facility] - [address] [place] [address] Interpreted at [facility] - [address], [place] [address] Automated Review Successful 05/23/2021 10:29 AM CDT [facility] Comment:Specimen processed s uccessfully by automated human relations professor device, ThinPrep Imaging System, [employer] Note The pap test is a screening technique, not a diagnostic procedure. It is used primarily to screen for squamous cancers and precursor lesions. Published studies have shown that it is subject to both false negative and false positive results. The pap test should not be used as the sole means to diagnose or exclude pre-malignant and malignant lesions. 05/23/2021 10:29 AM CDT [email or web address] Other (Cervical) Non-Blood / Unknown 05/11/2021 11:50 AM CDT 05/11/2021 12:04 PM CDT Rubi Campbell MD PATHOLOGY/CYTOLOGY Final Resu lt [email or web address] [address] [place] [address], [place] from Last 3 Months or Most Recently Relevant to Health Maintenance Insurance [place] [address] Care Teams Underwater Trapper Relationship Specialty Start Date End Date Jaquelin Shipley MD [address] [place] [address] PCP - General Family Practice 01/30/25
--- OUTSIDE RECORDS SUMMARY | 2025-04-13 16:14 | XMS_ITS | Encounter Summary ---
Author Organization [facility] Address [address] [place] [address] Care Team Providers Care Patternmaker Helper Name Role Phone Anjelica Park MD Primary Care Provider Unavail able Reason for Visit * Reason Onset Date Comments MH/CD Inpatient 08/26/2015 Encounter Details Date Type Department Care Team (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 Pt reports she is sleeping a lot and is having trouble focusing in school. Pt also reports that every time she gets in a car she thinks about crashing it. Pt reports SI increasing over the past 2 days. Pt reports school is the primary stressor. Utox neg. A: vol / mother will sign in R: librado / Garcia documented in this encounter Plan of Treatment Not on file documented as of this encounter Visit Diagnoses Not on filedocumented in this encounter Care Teams Patternmaker Helper Relationship Specialty Start Date End Date Anjelica Park MD PCP - General Pediatrics 08/26/15 04/05/25 documented as of this encounter
--- OUTSIDE RECORDS SUMMARY | 2025-04-13 16:14 | XMS_ITS | Clinical Summary ---
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 Gender Identity Not on file Sexual Orientation Not on file Plan of Treatment Health Maintenance Due Date Last Done Comments Pap Smear 05/11/2024 05/11/2021 COVID-19 Vaccine ( season) 2024 Influenza Vaccine (#1) 2024 DTaP,Tdap,and Td Vaccines (5 - Td or Tdap) 07/28/2025 07/28/2015, 03/06/2014, 06/19/2013, Additional history exists HPV Vaccines Completed 03/20/2016, 07/2015, 07/28/2015, Additional history exists Pneumococcal Vaccine: Pediatrics (0 to 5 Years) and At-Risk Patients (6 to 49 Years) Aged Out No longer eligible based on patient's age to complete this topic Insurance [facility]
--- NOTE | 2025-04-13 16:19 | ED_ITS ---
HPI - General Adult General Time Seen by Provider: 16:19 Date Seen: 04/13/25 Chief complaint: Eye Problems Stated complaint: Rt eye pain and headache Time Seen by Provider: 04/13/25 16:19 Source: patient Mode of arrival: ambulatory Limitations: no limitations History of Present Illness HPI narrative: 25-year-old female who comes in today for headache and eye pain. This is been going on for over a month. Headache is constant, pain waxes and wanes but never goes away. It is worse when she lays down, feels like his in the middle of the head. No nausea vomiting. Today comes in because her eyes feel ?abrasive. ? The right eye is been bothering her for some time and now the left hurts as well. No vision changes. No redness. No pain with movement of the eyes. Related Data Home Medications ?Medication ?Instructions ?Recorded ?Confirmed cyclobenzaprine 5 mg tablet 5 - 10 mg PO Q8H PRN muscl e spasm 04/13/25 04/13/25 Previous Rx's ?Medication ?Instructions ?Recorded emollient (Vanicream topical) 1 applic topical DAILY # 500 grams 09/24/24 nortriptyline 10 mg capsule 10 mg PO QHS #30 caps 03/20 05/13 Allergies Allergy/AdvReac Type Severity Reaction Status Date / Time latex Allergy Verified 04/13/25 16:26 prednisone Allergy Verified 04/13/25 16:26 [facility] Medical History Hypertension ?I10 - Essential (primary) hypertension (ICD-10) Heartburn ?R12 - Heartburn (ICD-10) Surgical History No significant past surgical history Social History Smoking Status: Never smoker Do you use any of these nicotine containing products: None Second hand tobacco smoke exposure: No How often do you have a drink containing alcohol: never How often do you have six or more drinks on one occasion: Never AUDIT-C Alcohol total score: 0 Non-prescribed substance use: denies use service: No Exam Narrative: Exam Narrative: General: Well-developed and well-nourished, no acute distress Head: Atraumatic and normocephalic Eyes: Pupils are equal reactive, extraocular motions intact, conjunctiva clear ENT: External nose and ears are normal, posterior pharynx without erythema or exudate Neck: No midline cervical tenderness, full spontaneous range of motion the neck, trachea midline, no adenopathy Heart: Regular rate and rhythm no murmurs or thrills Lungs: Clear to auscultation bilaterally without wheezes or crackles Abdomen: Soft, nontender, nondistended with active bowel sounds Musculoskeletal: No tenderness, deformity, or edema Neurologic: Awake, alert, and oriented x3, no gross focal neurologic deficits, cranial nerves intact as tested Psych: Mood and affect are appropriate Skin: No rashes Const: Vital Signs, click to edit/add: Vital Signs - 24 hr 04/13/25 16:20 04/13/25 19:00 Temperature 98 F Pulse Rate [Right Pulse Oximeter] 85 81 Respiratory Rate 16 16 Blood Pressure [Ri ght Upper Arm] 140/94 H 110/74 Pulse Oximetry 99 97 Oxygen Delivery Me thod Room Air Room Air Course Course ED Course: Reviewed most recent emergency department visit from March 30 which was for chronic non-intractable headache, has been treated for sinusitis with antibiotics, steroids, decongestants fall in neurology consult was placed. It does not appear patient has had prior brain imaging. Patient presents with chronic daily headache for over a month, feels like it is in the middle the head. No associated neurologic deficits, nausea vomiting but is positional worse when she lays down. MRI is ordered. Reevaluation(s) Time of Reevaluation #1: 17:34 Reevaluation #1: Patient declined to have MRI because ?it is too loud and gave her a panic attack. Patient reports significant anxiety. Patient was given Ativan prior to MRI, additional Ativan will be given and will retry scan around 7:00 p.m.. Time of Reevaluation #2: 20:29 Reevaluation #2: MRI of the brain independently interpreted by me negative for acute findings, radiology interpretation is pending. If agrees, will plan to discharge patient on nortriptyline. Vital Signs Vital signs: Initial Vital Signs Temperature 98 F 04/13/25 16:20 Temperature Source Temporal Artery Scan 04/13/25 16:20 Pulse Rate 85 04/13/25 16:20 Pulse Rhythm Regular 04/13/25 16:20 Pulse Strength 3+ Normal 04/13/25 16:20 Respiratory Rate 16 04/13/25 16:20 Blood Pressure 140/94 H 04/13/25 16:20 Blood Pressure Mean 109 H 04/13/25 16:20 Blood Pressure Position Sitting 04/13/25 16:20 Pulse Oximetry 99 04/13/25 16:20 Oxygen Delivery Method Room Air 04/13/25 16:20 Vital Signs Temperature 98 F 04/13/25 16:20 Pulse Rate 85 04/13/25 16:20 Respiratory Rate 16 04/13/25 16:20 Blood Pressure 140/94 H 04/13/25 16:20 Pulse Oximetry 99 04/13/25 16:20 Oxygen Delivery Method Room Air 04/13/25 16:20 Temperature 98 F 04/13/25 16:20 Pulse Rate 81 04/13/25 19:00 Respiratory Rate 16 04/13/25 19:00 Blood Pressure 110/74 04/13/25 19:00 Pulse Oximetry 97 04/13/25 19:00 Oxygen Delivery Method Room Air 04/13/25 19:00 Medications Administered Medications: Discontinued Medications Generic Name Dose Route Start Last Admin Trade Name Bradenq PRN Reason Stop Dose Admin Ketorolac Tromethamine 10 mg 04/13/25 17:40 04/13/25 17:46 Ketorolac 10 Mg Tablet PO 04/13/25 17:41 10 mg ONCE ONE Administration Lorazepam 0.5 mg 04/13/25 17:03 04/13/25 17:12 Lorazepam 0.5 Mg Tablet PO 04/13/25 17:04 0.5 mg ONCE ONE Administration Lorazepam 0.5 mg 04/13/25 17:40 04/13/25 17:46 Lorazepam 0.5 Mg Tablet PO 04/13/25 17:41 0.5 mg ONCE ONE Administration Medical Decision Making Lab Data Labs: Lab Results 04/13/25 Range/Units 17:07 Urine HCG, Qual Negative (Negative) Discharge Plan Discharge Clinical Impression: Chronic daily headache Patient Disposition: Home, Self-Care Condition: Stable Instructions: General Headache (ED) Additional Instructions: Start amitriptyline daily as prescribed Follow-up with neurology as previously recommended by your primary care doctor Activity Level: Activity as Tolerated Discharge Diet: Regular Prescriptions: New nortriptyline 10 mg capsule 10 mg PO QHS Qty: 30 0RF No Action emollient [Vanicream] Cream 1 applic topical DAILY Qty: 500 0RF cyclobenzaprine 5 mg tablet 5 - 10 mg PO Q8H PRN (Reason: muscle spasm) Follow Up/Referrals: Jaquelin Shipley MD [Primary Care Provider, Family Practice] Stand Alone Forms: [employer] Info Instructions
[2025-04-13 16:20] VITALS: BP 140/94; PULSE 85; RESP 16; TEMP 36.6; O2SAT 99; BMI 25.1
--- NOTE | 2025-04-13 16:56 | CRLHL7_ITS ---
For Patients: As a result of the Century Cures Act, medical imaging exams and procedure reports are released immediately into your electronic medical record. You may view this report before your referring provider. If you have questions, please contact your health care provider. INDICATION: Chronic daily positional headaches. TECHNIQUE: Multisequence multiplanar MRI of the brain prior to and following administration of 12 cc Dotarem gadolinium-based intravenous contrast. COMPARISON: None available. FINDINGS: No evidence of acute ischemia. Normal signal intensity of the brain parenchyma. No focus of abnormal enhancement. The ventricles are normal in size. Flow voids of the larger intracranial arteries are preserved. Bone marrow signal intensity of the calvarium is within normal limits. The globes are symmetric. There is mild scattered paranasal sinus mucosal thickening. IMPRESSION: 1. Unremarkable contrast-enhanced MRI of the brain. 2. Mild scattered paranasal sinus mucosal thickening without fluid level to indicate acute sinusitis. Dictated by Bharathi Goodson MD @ 04/13/2025 8:44:36 PM (Electronically Signed)
[2025-04-13] MEDS: LORazepam 0.5 MG TABLET PO ×2 (17:12→17:46)
[2025-04-13 17:21] LABS: Ur HCG Qualitative* Negative (Negative)
[2025-04-13] MEDS: KETOROLAC 10 MG TABLET PO (17:46)
[2025-04-13 19:00] VITALS: BP 110/74; PULSE 81; RESP 16; O2SAT 97
== END 2025-04-13 21:00 | disposition home or self-care (01) ==
PROVIDERS: Emergency Provider Family Medicine; PCP Student in an Organized Health Care Education/Training Program
DX: R51.9 Headache, unspecified (principal)
CPT/HCPCS: 70553; 81025; 99284; 99285; A9270; A9575

== ENCOUNTER 2025-05-19 13:38 | Emergency (ER) | payer MEDICAID, SELFPAY ==
[2025-05-19 13:41] VITALS: BP 135/91; PULSE 78; RESP 20; TEMP 36.8; O2SAT 98; BMI 25.5
--- OUTSIDE RECORDS SUMMARY | 2025-05-19 13:41 | XMS_ITS | Clinical Summary ---
Author Organization [facility] Address [address] [place] [id number] Care Team Providers Care Magazine Keeper Name Role Phone Elsewhere, Pcp Primary Care Provider Unavailabl e Source Comments Patient records contain information from all sites at [facility]. For routine questions regarding patient records, call [phone] during business hours, M-F 8:00 AM - 5:00 PM Central Time. 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 Gender Identity Not on file Sexual Orientation Not on file Last Filed Vital Signs Vital Sign Reading Time Taken Comments Blood Pressure 108/64 10/26/2024 2:34 AM SENIOR JAVA DEVELOPER Pulse 68 10/26/2024 2:34 AM SENIOR JAVA DEVELOPER Temperature 36.5 C (97.7 F) 10/26/2024 1:21 AM SENIOR JAVA DEVELOPER Respiratory Rate 16 10/26/2024 2:34 AM SENIOR JAVA DEVELOPER Oxygen Saturation 97% 10/26/2024 2:34 AM SENIOR JAVA DEVELOPER Inhaled Oxygen Concentration - - Weight 66 kg (145 lb 8.1 oz) 10/26/2024 1:20 AM SENIOR JAVA DEVELOPER Height 159 cm (5' 2.6) 08/29/2017 12:15 [...] M ICROBIOLOGY - GENERAL ORDERABLES Final Result [facility] [address] [place] [address], [facility] [place] [address] [place] [id number] from Last 3 Months or Most Recently Relevant to Health Maintenance Insurance ARE Care Teams Magazine Keeper Relationship Specialty Start Date End Date Elsewhere, Pcp PCP - General 12/08/19
--- OUTSIDE RECORDS SUMMARY | 2025-05-19 13:41 | XMS_ITS | Clinical Summary ---
Author Organization [facility] Address [address] [place] [address] Care Team Providers Care Cobol Programmer Name Role Phone Jaquelin Shipley MD Primary Care Prov ider Allergies Active Allergy Reactions Criticality Noted Date Comments Latex Rash Unknown 09/16/2019 Prednisone Anxiety 10/26/2024 Medications fluticasone (50 mcg per actuation) nasal solution (FLONASE)Indica tions:Chronic rhinitis Inhale 2 Sprays to both nostrils once daily. 16 g 3 05/23/2024 Active cyclobenzaprine (FLEXERIL) 5 mg tabletIndicatio ns:Chronic midline thoracic back pain Take 1-2 Tablets (5-10 mg) by mouth every 8 hours if needed for Muscle Spasm. Do not take more than 4 tablets daily. 42 Tablet 3 06/02/2024 Active ibuprofen (ADVIL; MOTRIN) 600 mg tabletIndicatio ns:History of dental surgery Take 1 Tablet (600 mg) by mouth every 6 hours if needed for Pain. Maximum of 3200 mg in 24 hours. 32 Tablet 11/03/2024 Active cetirizine HCl/pseudoephed rine (ZYRTEC-D ORAL) Take by mouth. Active rizatriptan 5 mg tabletIndicatio ns:Migraine syndrome Take 1 Tablet (5 mg) by mouth every 2 hours if needed for Migraine. Give at minimum 2hrs apart. Max Dose: 30mg per 24hrs. 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, HEAD/BRAIN WO/W, 04/13/2025 03/30/2025 11:05 AM CDT Office Visit [facility] [address] [place] [place] [address] Jaquelin Shipley MD Follow Up (eye sensitivity. /medication made head burn - went to the ED /Memory issues /Pain is worsening. ) 03/30/2025 Travel 03/25/2025 11:30 AM CDT Office Visit [facility] [address] [place] [place] [address] Jaquelin Shipley MD Follow Up (HEADACHES ) 03/25/2025 Orders Only [facility] [address] [place] [place] [id number] Jaquelin Shipley MD <No scans attached> 03/25/2025 Travel 03/20/2025 Telephone [facility] [address] [place] [id number] Jaquelin Shipley MD Referral 03/16/2025 10:00 AM CDT Ancillary Procedure [facility] [address] [facility] [address] [place] [address] 03/16/2025 Telephone [facility] [address] [place] [phone] Milagro Castro PA Results (ct scan) 03/16/2025 Travel 03/10/2025 9:00 AM CDT Office Visit [facility] [address] [place] [phone] Milagro Castro PA Consult (sinusitits) 03/10/2025 Travel 02/27/2025 10:15 AM CDT Office Visit [facility] [address] [place] [address] Jaquelin Shipley MD Headache (off and on for 2 months ); Sinus Problem (Believes she has a sinus infection ) 02/27/2025 Travel from Last 3 Months Immunizations Immunization Administration [...] on file 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 Gender Identity Not on file Sexual Orientation [...] 21-65 05/11/2024 05/11/2021 COVID-19 vaccine series ( - 2023- season) 2024 BMI (ht and wt on same day) for age 18+ 02/03/2025 02/04/2024, 12/28/2023, 07/26/2023, Additional history exists Depression screening for age 12+ 02/07/2025 02/08/2024, 02/04/2024, 02/04/2024, Additional history exists Influenza Vaccine (Season Ended) 2025 Tetanus booster 07/28/2025 07/28/2015, 02/17, 06/19/2013 (IA) Tdap Completed 07/28/2015, 02/17, 06/19/2013 HPV series for age 9-26 Completed 03/20/20 16, 07/28/2015, 05/29/2014 Hepatitis B series for 19+ Completed 03/20, 05/29/2014, 07/27/2004 Pneumococcal series for age 6-49 Aged Out No longer eligible based on patient's age to complete this topic Procedures Procedure Name Priority Date/Time Associated Diagnosis Comments SCAN-MRI INTERPRETATION 04/13/20 12:00 AM CDT TSH WITH REFLEX Routine 03/25/2025 12:37 PM CDT Temperature intolerance Nausea CT HEAD SINUS LANDMARX WO Routine 03/16/2025 10:12 AM CDT Chronic frontal sinusitis REEL WORKER THIN PREP PAP SCREEN IMAGED Routine 05/11/2021 11:50 AM CDT Screening for cervical cancer from Last 3 Months or Most Recently Relevant to Health Maintenance Results * SCAN-MRI INTERPRETATION (04/13/2025 12:00 AM CDT) Anatomical Region Laterality Modality Other us Scanner OTHER Final Result * TSH WITH REFLEX (03/25/2025 12:37 PM CDT) TSH W/REFLEX TO FT4 2.19 mIU/L [facility] Comment: Reference Range > or = 20 Years 0.40-4.50 Ranges First trimester 0.26-2.66 Second trimester 0.55-2.73 Third trimester 0.43-2.91 Blood BLOOD SPECIMEN / Unknown 03/25/2025 12:37 PM CDT 03/25/2025 12:37 PM CDT Jaquelin Shipley MD CHEMISTRY Fi nal Result Sincerely [facility] [address] [place] [address], [facility] [address] [place] [address] * CT HEAD SINUS LANDMARX WO (03/16/2025 10:12 AM CDT) Anatomical Region Laterality Modality SINUS Computed Tomogra phy 03/16/2025 10:2 6 AM CDT Narrative 03/16/2025 10:26 AM CDT For Patients: As a result of the Century Cures Act, medical imaging exams and [...] MD @ 03/16/2025 10:26:03 AM (Electronically Signed) us Milagro WATKINS CT Final Re sult * REEL WORKER THIN PREP PAP SCREEN IMAGED [[id number]] (05/11/2021 11:50 AM CDT) Case Report Gynecologic Cytology Report Case: [id number] Authorizing Provider: Rubi Campbell MD Collected: 05/11/2021 1150 Ordering Location: [facility] Received: 05/11/2021 1204 Clinic First Screen: Baccam, Minie Rescreen: Tanesha Kuo Specimen: REEL WORKER ThinPrep Vial Screening, Cervical 05/23/2021 10:29 AM CDT [facility] EN[facility]AL [facility] INTERPRETATION/ RESULT NEGATIVE FOR INTRAEPITHELIAL LESION OR MALIGNANCY (NIL) (none) 05/23/2021 10:29 AM CDT [facility] [employer] [facility] ENTRAL LABORATORY at 1029 CDT SPECIMEN ADEQUACY Satisfactory for evaluation Endocervical component present 05/23/2021 10:29 AM CDT [facility] HPV REQUEST HPV if ASCUS 05/23/2021 10:29 AM CDT [facility] Date of LMP 05/01/21 05/23/2021 10:29 AM CDT [facility] [employer] ENTRAL LABORATORY Last Pap Date n/a 05/23/2021 10:29 AM CDT [facility] Last Pap Result First Pap/Unknown 10:29 AM CDT [facility] [employer] [facility] ENTRAL LABORATORY Abnormal Pap or [place] Bx in last 5 years No 05/23/2021 10:29 AM CDT [facility] [employer] ENTRAL LABORATORY Menstrual Status Regular Periods 05/23/2021 10:29 AM CDT [facility] [employer] [facility] ENTRAL LABORATORY [place] Bx Done Today No 05/23/2021 10:29 AM CDT [facility] [employer] [facility] ENTRAL LABORATORY Additional Information None given 05/23/2021 10:29 AM CDT [facility] [employer] [facility] ENTRAL LABORATORY Comment: Cytology is screened at [facility], Central Laboratory - [address], [place] [address] and [facility] - [address], [place] [address] and [facility] - [address], [place] [address] Interpreted at [facility], Central Laboratory - [address], [place] [address] Automated Review Successful 05/23/2021 10:29 AM CDT [facility] ENTRAL LABORATORY Comment:Specimen processed s uccessfully by automated event decorator and designer device, ThinPrep Imaging System, [employer] Note The pap test is a [...] and malignant lesions. 05/23/2021 10:29 AM CDT [facility] ENTRAL LABORATORY Other (Cervical) Non-Blood / Unknown 05/11/2021 11:50 AM CDT 05/11/2021 12:04 PM CDT us Rubi Campbell MD PATHOLOGY/CYTOLOGY Final Resu lt [facility]CENTRAL LABORATORY [address] [place] [address], [place] from Last 3 Months or Most Recently Relevant to Health Maintenance Insurance MEDICAID RESTRICTED PATIENT PROG Care Teams Cobol Programmer Relationship Specialty Start Date End Date Jaquelin Shipley [place] [address] PCP - General Family Practice 01/30/25
--- OUTSIDE RECORDS SUMMARY | 2025-05-19 13:41 | XMS_ITS | Clinical Summary ---
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 Gender Identity Not on file Sexual Orientation Not on file Plan of Treatment Health Maintenance Due Date Last Done Comments Pap Smear 05/11/2024 05/11/2021 COVID-19 Vaccine ( season) 2024 Influenza Vaccine (#1) 2025 DTaP,Tdap,and Td Vaccines (5 - Td or Tdap) 07/28/2025 07/28/2015, 03/06/2014, 06/19/2013, Additional history exists HPV Vaccines Completed 03/20/2016, 07/2015, 07/28/2015, Additional history exists Pneumococcal Vaccine: Pediatrics (0 to 5 Years) and At-Risk Patients (6 to 49 Years) Aged Out No longer eligible based on patient's age to complete this topic Insurance [facility]
--- OUTSIDE RECORDS SUMMARY | 2025-05-19 13:41 | XMS_ITS | Clinical Summary ---
Author Organization [facility] Address [address] 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 Gender Identity Not on file Sexual Orientation [...] VISIT 05/11/2022 05/11/2021 PAP 05/11/2024 05/11/2021 COVID-19 VACCINE ( season) 2024 PHQ-2 (once per calendar year) 2024 INFLUENZA VACCINE (#1) 2025 DTAP/TDAP/TD VACCINE (5 - Td or Tdap) 07/28/2025 07/28/2015, 03/06/2014, 06/19/2013, Additional history exists ZOSTER VACCINE (1 of 2) 2049 CHLAMYDIA SCREENING Discontinued 08/27/2015 HIV SCREENING Completed 08/28/2015 HEPATITIS B VACCINE Completed 03/20/2016, 05/29/2014, 07/27/2004 HPV VACCINE Completed 03/20/2016, 07/2015, 05/29/2014 MENINGITIS VACCINE Completed 03/26/2017, 05/29/2014 PNEUMOCOCCAL VACCINE: PEDIATRICS (0 to 5 YEARS) AND AT-RISK PATIENTS (6 to 49 YEARS) Aged Out No longer eligible based on [...] CDT EXAM: CT HEAD W/O CONTRAST LOCATION: [facility] DATE: 03/30/2025 INDICATION: Headache x 2.5 months [...] 03/30/2025 EXAM: CT HEAD W/O CONTRAST LOCATION: [facility] DATE: 03/30/2025 INDICATION: Headache x 2.5 months [...] 1. Normal head CT. Juma Person MD [facility] CT ORDERABLES Final Result * HIV Antigen Antibody Combo (08/28/2015 7:48 AM CDT) HIV Antigen Antibody Combo Nonreactive HIV-1 p24 Ag & HIV-1/HIV-2 Ab Not Detected NR [facility] Blood specimen (specimen) 08/28/2015 7:48 AM CDT 08/28/2015 7:49 AM CDT Guillermo Torres MD LAB - BLOOD ORDERABLES Ashley l Result Performing Organization Address City/[facility]/ZIP Co de Phone Number [facility] [address] [place] [address] * Chlamydia trachomatis PCR (08/27/2015 2:30 PM CDT) Specimen Description Urine [facility] Chlamydia Trachomatis PCR Negative Negative for C. trachomatis rRNA by fast food manager mediated amplification. A negative result by fast food manager mediated amplification does not preclude the presence of C. trachomatis infection because results are dependent on proper and adequate collection, absence of inhibitors, and sufficient rRNA to be detected. [facility] Urine specimen (specimen) 08/27/2015 2:30 PM CDT 08/27/2015 4:52 PM CDT Guillermo Torres MD LAB - MICRO GENERAL ORDERAB LES Final Result Performing Organization Address [facility] Co de Phone Number [facility] [address] [place] [address], [facility] [address] [place] [address] from Last 3 Months or Most Recently Relevant to Health Maintenance [place] [address] [place] Advance Directives For more information, please contact: [phone] * Full Code (Latest Code Status on File) Date Activated Date Inactivated Comments 08/27/2015 2:47 AM 09/01/2015 4:08 PM Care Teams Supervisor Photocomposition Relationship Specialty Start Date End Date [place] [address] PCP - General Family Medicine 04/06/25
--- NOTE | 2025-05-19 14:20 | ED_ITS ---
HPI - Dental/Oral General Date Seen: 05/19/25 Chief complaint: Dental/Oral/Mouth Injury/Pain Stated complaint: mouth pain Time Seen by Provider: 05/19/25 13:40 Source: patient Mode of arrival: ambulatory Limitations: no limitations History of Present Illness HPI Narrative: Patient is a 25-year-old female presenting for dental pain. Her pain is on tooth 18. She has had previous feelings for this tooth. No previous root canals. Has previously had her wisdom teeth removed. Sees a dentist every 6 months and last saw them in December. Does states she is having another appointment this upcoming for this dental pain. It started yesterday. She can chew but is painful she to use with that tooth. Pain seems to be all around the tooth. She feels like it is slightly swollen. His that had any fevers or chills. No other concerns noted. Denies sore throat Related Data Home Medications ?Medication ?Instructions ?Recorded ?Confirmed cyclobenzaprine 5 mg tablet 5 - 10 mg PO Q8H PRN muscl e spasm 04/13/25 04/13/25 Previous Rx's ?Medication ?Instructions ?Recorded emollient (Vanicream topical) 1 applic topical DAILY # 500 grams 09/24/24 nortriptyline 10 mg capsule 10 mg PO QHS #30 caps 03/20 05/13 amoxicillin 875 mg-potassium 1 tab PO BID #10 tabs 12/13 clavulanate 125 mg tablet ketorolac 10 mg tablet 10 mg PO Q6H PRN pain #20 ta bs 05/19/25 Allergies Allergy/AdvReac Type Severity Reaction Status Date / Time latex Allergy Verified 05/19/25 13:44 prednisone Allergy Verified 05/19/25 13:44 Review of Systems Narrative: Pertinent systems reviewed and were negative unless stated in HPI PFSH PFSH Medical History Hypertension ?I10 - Essential (primary) hypertension (ICD-10) Heartburn ?R12 - Heartburn (ICD-10) Surgical History No significant past surgical history Social History Smoking Status: Never smoker Do you use any of these nicotine containing products: None Second hand tobacco smoke exposure: No How often do you have a drink containing alcohol: never How often do you have six or more drinks on one occasion: Never AUDIT-C Alcohol total score: 0 Non-prescribed substance use: denies use service: No Exam Narrative: Exam Narrative: Const: Well-nourished, Well-developed, in mild distress Eyes: PERRL, no conjunctival injection, and symmetrical lids HENT: Atraumatic external nose and ears. Moist mucous membranes. She does have extracted molars on both sides. Unsure if this is so poor wisdom teeth removal or she had other previous bad dentition. Her left overall molars do have fillings. Otherwise good dentition. Tenderness to palpation around tooth 18 with some erythema seen underneath. Mild swelling Neck: Symmetric, trachea midline, No thyromegaly. MSK:Extremities w/o deformity, Normal Active ROM Skin: Warm, Dry. No rashes or lesions. Neuro: Normal Muscle tone, No focal neurological deficits. Psych: Awake, Alert, & Oriented x3. Appropriate mood and affect. Const: Vital Signs, click to edit/add: Vital Signs - 24 hr 05/19/25 13:41 Temperature 98.3 F Pulse Rate [Pulse Oximeter] 78 Respiratory Rate 20 Blood Pressure [Ri ght Upper Arm] 135/91 H Pulse Oximetry 98 Oxygen Delivery Me thod Room Air Course Vital Signs Vital signs: Initial Vital Signs Temperature 98.3 F 05/19/25 13:41 Temperature Source Temporal Artery Scan 05/19/25 13:41 Pulse Rate 78 05/19/25 13:41 Pulse Rhythm Regular 05/19/25 13:41 Pulse Strength 3+ Normal 05/19/25 13:41 Respiratory Rate 20 05/19/25 13:41 Blood Pressure 135/91 H 05/19/25 13:41 Blood Pressure Mean 105 05/19/25 13:41 Blood Pressure Position Sitting 05/19/25 13:41 Pulse Oximetry 98 05/19/25 13:41 Oxygen Delivery Method Room Air 05/19/25 13:41 Vital Signs Temperature 98.3 F 05/19/25 13:41 Pulse Rate 78 05/19/25 13:41 Respiratory Rate 20 05/19/25 13:41 Blood Pressure 135/91 H 05/19/25 13:41 Pulse Oximetry 98 05/19/25 13:41 Oxygen Delivery Method Room Air 05/19/25 13:41 Temperature 98.3 F 05/19/25 13:41 Pulse Rate 78 05/19/25 13:41 Respiratory Rate 20 05/19/25 13:41 Blood Pressure 135/91 H 05/19/25 13:41 Pulse Oximetry 98 05/19/25 13:41 Oxygen Delivery Method Room Air 05/19/25 13:41 MDM - Dental/Oral MDM Narrative Medical decision making narrative: Patient is a 25-year-old female presenting for dental pain. He may have a dental infection cause her pain. She was concerned the pain could be from left over wisdom tooth removal from several years ago although this would be better evaluated with dental x-rays done at her dentist. She has not used any pain medication yet so will prescribe her Toradol and start her on Augmentin. She is agreeable to this plan Discharge Plan Discharge Clinical Impression: Dental caries Patient Disposition: Home, Self-Care Condition: Stable Instructions: Toothache (ED) Additional Instructions: Take Tylenol and the Toradol as needed for pain. While using Toradol do not use other NSAIDs such as naproxen or ibuprofen. You can continue to take Tylenol with it. Take the antibiotics as directed. Make sure to follow-up with your dentist. Prescriptions: New ketorolac 10 mg tablet 10 mg PO Q6H PRN (Reason: pain) Qty: 20 0RF Rx Instructions: maximum total duration of 5 days from all oral, intranasal, or parenteral formulations amoxicillin-pot clavulanate 875-125 mg tablet 1 tab PO BID Qty: 10 0RF No Action emollient [Vanicream] Cream 1 applic topical DAILY Qty: 500 0RF cyclobenzaprine 5 mg tablet 5 - 10 mg PO Q8H PRN (Reason: muscle spasm) nortriptyline 10 mg capsule 10 mg PO QHS Qty: 30 0RF Follow Up/Referrals: Jaquelin Shipley MD [Primary Care Provider, Family Practice] Stand Alone Forms: MyHealth Info Instructions
[2025-05-19] MEDS: KETOROLAC 10 MG TABLET PO (14:40)
== END 2025-05-19 14:42 | disposition home or self-care (01) ==
LOC: ED 14:28
PROVIDERS: Emergency Provider Student in an Organized Health Care Education/Training Program; PCP Student in an Organized Health Care Education/Training Program
DX: K02.9 Dental caries, unspecified (principal)
CPT/HCPCS: 99283; A9270

== ENCOUNTER 2025-06-20 04:20 | Emergency (ER) | payer MEDICAID, SELFPAY ==
--- OUTSIDE RECORDS SUMMARY | 2025-06-20 04:22 | XMS_ITS | Clinical Summary ---
Author Organization [employer] [facility] Address [address] [place] [address] Care Team Providers Care Industrial Automation Engineer Name Role Phone Jaquelin Shipley MD Primary [...] 30mg per 24hrs. 3 Tablet 5 Active ketorolac 10 mg tabletIndicatio ns:Tooth infection Take 1 Tablet (10 mg) by mouth every 6 hours if needed for Pain for up to 20 days. Maximum of 40 mg in 24 hours. 20 Tablet 5 06/09/20 25 amoxicillin-cla vulanate 875-125 mg tabletIndicatio ns:Tooth infection Take 1 Tablet by mouth two times daily with meals for 5 days. 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 Anxiety 12/14/2015 Adjustment disorder with mixed anxiety and depre ssed mood 12/14/2015 Encounters Date Type Department Care Team Description 06/04/[address] [address] Jaquelin Shipley MD Referral (Neurology) 05/20/[address] [address] Jaquelin Shipley MD Medication Management (ketorolac 10 mg tablet) 05/20/2025 Telephone [facility] [address] [place] [address] Jaquelin Shipley MD Questions 05/20/[address] [address] Jaquelin Shipley MD Medication Management (Amoxicillian) 05/20/[address] [address] Jaquelin Shipley MD Medication Management (Amoxocilin /Ketorolac/) 04/30/[address] [address] Jaquelin Shipley MD Referral 04/13/2025 Orders Only [facility] Scanner 1 scan: (1-Ord) [facility], HEAD/BRAIN WO/W, 04/13/2025 03/30/2025 11:05 AM CDT Office Visit [facility] [address] [place] [address] Jaquelin Shipley MD Follow Up (eye sensitivity. /medication made head burn - went to the ED /Memory issues /Pain is worsening. 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 Gender Identity Not on file Sexual Orientation [...] age 21-65 05/11/2024 05/11/2021 COVID-19 vaccine series (2023- season) 2024 BMI (ht and wt on same day) for age 18+ 02/03/2025 02/04/2024, 12/28/2023, 07/26/2023, Additional history exists Depression screening for age 12+ 02/07/2025 02/08/2024, 02/04/2024, 02/04/2024, Additional history exists Influenza Vaccine (#1) 2025 Tetanus booster 07/28/2025 07/28/2015, 02/17, 06/19/2013 HPV series for age [...] 03/25/2025 12:37 PM CDT Temperature intolerance Nausea MANAGER FREELANCE THIN PREP PAP SCREEN IMAGED Routine 05/11/2021 11:50 AM CDT Screening for cervical cancer from Last 3 Months or Most Recently Relevant to Health Maintenance Results * SCAN-MRI INTERPRETATION (04/13/2025 12:00 AM CDT) Anatomical Region Laterality Modality Other us Scanner OTHER Final Result * TSH WITH REFLEX (03/25/2025 12:37 PM CDT) TSH W/REFLEX TO FT4 2.19 mIU/L [facility] Comment: Reference Range > or = 20 Years 0.40-4.50 Ranges First trimester 0.26-2.66 Second trimester 0.55-2.73 Third trimester 0.43-2.91 Blood BLOOD SPECIMEN / Unknown 03/25/2025 12:37 PM CDT 03/25/2025 12:37 PM CDT us Jaquelin Shipley MD CHEMISTRY Fi nal Result threadsy [facility] [address] [place] [address], [facility] [address] [place] [address] * MANAGER FREELANCE THIN PREP PAP SCREEN IMAGED [[id number]] (05/11/2021 11:50 AM CDT) Case Report Gynecologic Cytology Report Case: [id number] Authorizing Provider: Rubi Campbell MD Collected: 05/11/2021 1150 Ordering Location: [facility] Received: 05/11/2021 1204 Clinic First Screen: Baccam, Minie Rescreen: Tanesha Kuo Specimen: MANAGER FREELANCE ThinPrep Vial Screening, Cervical 05/23/2021 10:29 AM CDT [facility] INTERPRETATION/ RESULT NEGATIVE FOR INTRAEPITHELIAL LESION OR MALIGNANCY (NIL) (none) 05/23/2021 10:29 AM CDT [facility] at 1029 CDT SPECIMEN ADEQUACY Satisfactory for evaluation Endocervical component present 05/23/2021 10:29 AM CDT [facility] HPV REQUEST HPV if ASCUS 05/23/2021 10:29 AM CDT [facility] Date of LMP 05/01/21 05/23/2021 10:29 AM CDT [facility] Last Pap Date n/a 05/23/2021 10:29 AM CDT [facility] Last Pap Result First Pap/Unknown 10:29 AM CDT [facility] Abnormal Pap or [place] Bx in last 5 years No 05/23/2021 10:29 AM CDT [facility] Menstrual Status Regular Periods 05/23/2021 10:29 AM CDT [facility] [place] Bx Done Today No 05/23/2021 10:29 AM CDT [facility] Additional Information None given 05/23/2021 10:29 AM CDT [facility] Comment: Cytology is screened at [facility] - [address] [address] and [facility] - [address] [place] [address] and [facility] - [address] [place] [address] Interpreted at [facility] - [address], [place] [address] Automated Review Successful 05/23/2021 10:29 AM CDT [facility] Comment:Specimen processed s uccessfully by automated restorative coordinator device, ThinPrep Imaging System, [employer] Note The pap test is a [...] and malignant lesions. 05/23/2021 10:29 AM CDT [facility] Other (Cervical) Non-Blood / Unknown 05/11/2021 11:50 AM CDT 05/11/2021 12:04 PM CDT Rubi Campbell MD PATHOLOGY/CYTOLOGY Final Resu lt [facility] [address] [place] [address], [place] from Last 3 Months or Most Recently Relevant to Health Maintenance Insurance MEDICAID [place] [address] Care Teams Industrial Automation Engineer Relationship Specialty Start Date End Date Jaquelin Shipley MD [facility] [place] [address] PCP - General Family Practice 01/30/25
--- OUTSIDE RECORDS SUMMARY | 2025-06-20 04:22 | XMS_ITS | Clinical Summary ---
Author Organization [facility] Address [address] 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 Normal head CT. Juma Person MD [facility] CT ORDERABLES Final Result * HIV Antigen Antibody Combo (08/28/2015 7:48 AM CDT) HIV Antigen Antibody Combo Nonreactive HIV-1 p24 Ag & HIV-1/HIV-2 Ab Not Detected NR [facility] Blood specimen (specimen) 08/28/2015 7:48 AM CDT 08/28/2015 7:49 AM CDT Guillermo Torres MD LAB - BLOOD ORDERABLES Ashley l Result Performing Organization Address City/[facility]/ZIP Co de Phone Number [facility] [address] [place] [address] * Chlamydia trachomatis PCR (08/27/2015 2:30 PM CDT) Specimen Description Urine [facility] Chlamydia Trachomatis PCR Negative Negative for C. trachomatis rRNA by business programmer mediated amplification. A negative result by business programmer mediated amplification does not preclude the presence of C. trachomatis infection because results are dependent on proper and adequate collection, absence of inhibitors, and sufficient rRNA to be detected. NEG [facility] Urine specimen (specimen) 08/27/2015 2:30 PM CDT 08/27/2015 4:52 PM CDT Guillermo Torres MD LAB - MICRO GENERAL ORDERAB LES Final Result Performing Organization Address [facility] Co de Phone Number [facility] [address] [place] [address], [facility] [address] [place] [address] from Last 3 Months or Most Recently Relevant to Health Maintenance Insurance [place]ICAID [place]ICAID [place] Advance Directives For more information, please contact: [phone] * Full Code (Latest Code Status on File) Date Activated Date Inactivated Comments 08/27/2015 2:47 AM 09/01/2015 4:08 PM Care Teams Private Advisor Relationship Specialty Start Date End Date Jaquelin Ship[place] [address] PCP - General Family Medicine 04/06/25
--- OUTSIDE RECORDS SUMMARY | 2025-06-20 04:22 | XMS_ITS | Clinical Summary ---
Author Organization [facility] Address [address] [place] [address] Care Team Providers Care Mobility Architect Manager Name Role Phone Elsewhere, Pcp Primary Care Provider Unavailabl e Source Comments Patient records contain information from all sites at [facility]. For routine questions regarding patient records, call [phone] during business hours, M-F 8:00 AM - 5:00 PM Central Time. Record requests for emergency care only can be directed to [phone] at any time.[facility] Allergies Active Allergy Reactions Criticality Noted Date [...] on file Legal Sex Female 9:23 AM BACKUP ENGINEER Gender Identity Not on file Sexual Orientation Not on file Last Filed Vital Signs Vital Sign [place] Time Taken Comments Blood Pressure 108/64 10/26/2024 2:34 AM BACKUP ENGINEER Pulse 68 10/26/2024 2:34 AM BACKUP ENGINEER Temperature 36.5 C (97.7 F) 10/26/2024 1:21 AM BACKUP ENGINEER Respiratory Rate 16 10/26/2024 2:34 AM BACKUP ENGINEER Oxygen Saturation 97% 10/26/2024 2:34 AM BACKUP ENGINEER Inhaled Oxygen Concentration - - Weight 66 kg (145 lb 8.1 oz) 10/26/2024 1:20 AM BACKUP ENGINEER Height 159 cm (5' 2.6) 08/29/2017 12:15 [...] Vaccine ( - 2023-2 5 season) 2024 Depression Monitoring (PHQ-9 for quality tracking) 11/19/2024 DTaP,Tdap,and Td Vaccines (5 - Td or Tdap) 07/28/2025 07/28/2015, 03/06/2014, 06/19/2013, Additional history exists Influenza Vaccine (#1) 2025 HPV Vaccines Completed 03/20/2016, 07/2015, 05/29/2014 Hepatitis [...] M ICROBIOLOGY - GENERAL ORDERABLES Final Result [facility] [address] [place] [address], [facility] [place] [address] [place] [address] from Last 3 Months or Most Recently Relevant to Health Maintenance Insurance ARE Care Teams Mobility Architect Manager Relationship Specialty Start Date End Date Elsewhere, Pcp PCP - General 12/08/19
--- OUTSIDE RECORDS SUMMARY | 2025-06-20 04:22 | XMS_ITS | Clinical Summary ---
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
[2025-06-20 04:32] VITALS: BP 124/87; PULSE 75; RESP 16; TEMP 36.6; O2SAT 98; BMI 25.6
--- NOTE | 2025-06-20 04:39 | CRLHL7_ITS ---
For Patients: As a result of the Century Cures Act, medical imaging exams and procedure reports are released immediately into your electronic medical record. You may view this report before your referring provider. If you have questions, please contact your health care provider. INDICATION: Painful breathing COMPARISON: None. TECHNIQUE: PA and lateral 2 view chest. FINDINGS: Lung volumes are good. No focal or diffuse opacities. No pulmonary edema. No pleural effusion. No pneumothorax. No pneumomediastinum. Normal cardiomediastinal silhouette. Bones: Normal for age. IMPRESSION: Normal chest radiographs. Dictated by Monae Jensen MD @ 06/20/2025 5:20:51 AM (Electronically Signed)
--- NOTE | 2025-06-20 05:25 | ED.SOB ---
HPI - SOB/Dyspnea General Time Seen by Provider: : Date Seen: 06/20/25 Chief Complaint: Shortness of Breath/Dyspnea Stated Complaint: painful breathing Time Seen by Provider: 06/20/25 05:04 Source: patient Mode of arrival: ambulatory History of Present Illness HPI Narrative: Margaret is a 25-year-old female the past medical history of asthma who presents to the emergency department for evaluation of shortness of breath. Patient reports that around 3:30 a.m. this morning she developed some pain with breathing. Patient denies any specific shortness of breath however reports pain when she takes a deep breath in and worse when she takes a deep breath out. Patient states that she has been camping an outside a lot. Reports history of asthma but has not used inhaler in years. Patient denies any recent fever, chills, cough or cold-like symptoms. Denies any abdominal pain, nausea, vomiting, diarrhea. Patient reports history of chest wall injury. Denies any lower extremity edema or calf tenderness, patient denies tobacco use, no estrogen/OCP use, no prolonged immobilization, recent surgery, no history of cancer. No other complaints. Related Data Home Medications ?Medication ?Instructions ?Recorded ?Confirmed cyclobenzaprine 5 mg tablet 5 - 10 mg PO Q8H PRN muscle spasm 04/13/25 04/13/25 Previous Rx's ?Medication ?Instructions ?Recorded emollient (Vanicream topical) 1 applic topical DAILY #500 grams 09/24/24 nortriptyline 10 mg capsule 10 mg PO QHS #30 caps 04/13/25 amoxicillin 875 mg-potassium 1 tab PO BID #10 tabs 05/19/25 clavulanate 125 mg tablet ketorolac 10 mg tablet 10 mg PO Q6H PRN pain #20 tabs 05/19/25 Allergies Allergy/AdvReac Type Severity Reaction Status Date / Time latex Allergy Verified 06/20/25 04:35 prednisone Allergy Verified 05/19/25 13:44 Review of Systems Narrative: Past medical history, past surgical history, medications, allergies, family history, and social history were reviewed with the patient. No additional pertinent items. A medically appropriate review of systems was performed with pertinent positives and negatives noted in HPI, all other systems negative. PFSH PFS Medical History Hypertension ?I10 - Essential (primary) hypertension (ICD-10) Heartburn ?R12 - Heartburn (ICD-10) Surgical History No significant past surgical history Social History Smoking Status: Never smoker Do you use any of these nicotine containing products: None Second hand tobacco smoke exposure: No How often do you have a drink containing alcohol: never How often do you have six or more drinks on one occasion: Never AUDIT-C Alcohol total score: 0 Non-prescribed substance use: denies use service: No Exam Narrative: Exam Narrative: General: Afebrile, no acute distress HEENT: Normocephalic, atraumatic, conjunctiva normal. MMM Neck: non-tender, supple Cardio: regular rate. regular rhythm Resp: Normal work of breathing, no respiratory distress, lungs clear bilaterally, no wheezing, rhonchi, rales Chest/Back: no visual signs of trauma, no midline tenderness, no CVA tenderness Abdomen: soft, non distension, no tenderness, no peritoneal signs Neuro: alert and fully oriented. CN II-XII grossly intact. Grossly normal strength and sensation in all extremities. MSK: no deformities. Normal range of motion Integumentary/Skin: no rash visualized, normal color Psych: normal affect, normal behavior Const: Vital Signs, click to edit/add: Vital Signs - 24 hr 06/20/25 04:32 06/20/25 05:31 06/20/25 05:33 Temperature 97.8 F 97.8 F Pulse Rate [Pulse Oximeter] 75 71 Respiratory Rate 16 16 Blood Pressure [Ri ght Upper Arm] 124/87 Pulse Oximetry 98 99 Oxygen Delivery Me thod Room Air Room Air 06/20/25 05:49 Temperature 97.8 F Pulse Rate [Pulse Oximeter] 71 Respiratory Rate 16 Blood Pressure [Ri ght Upper Arm] 124/87 Pulse Oximetry Oxygen Delivery Me thod Course Vital Signs Vital signs: Initial Vital Signs Temperature 97.8 F 06/20/25 04:32 Temperature Source Temporal Artery Scan 06/20/25 04:32 Pulse Rate 75 06/20/25 04:32 Respiratory Rate 16 06/20/25 04:32 Respiratory Effort Normal, Spontaneous, Non-Labored 06/20/25 04:32 Respiratory Depth Normal 06/20/25 04:32 Respiratory Pattern Normal 06/20/25 04:32 Blood Pressure 124/87 06/20/25 04:32 Blood Pressure Mean 99 06/20/25 04:32 Blood Pressure Position Sitting 06/20/25 04:32 Pulse Oximetry 98 06/20/25 04:32 Oxygen Delivery Method Room Air 06/20/25 04:32 Vital Signs Temperature 97.8 F 06/20/25 04:32 Pulse Rate 75 06/20/25 04:32 Respiratory Rate 16 06/20/25 04:32 Blood Pressure 124/87 06/20/25 04:32 Pulse Oximetry 98 06/20/25 04:32 Oxygen Delivery Method Room Air 06/20/25 04:32 Temperature 97.8 F 06/20/25 05:49 Pulse Rate 71 06/20/25 05:49 Respiratory Rate 16 06/20/25 05:49 Blood Pressure 124/87 06/20/25 05:49 Pulse Oximetry 99 06/20/25 05:33 Oxygen Delivery Method Room Air 06/20/25 05:33 Medications Administered Medications: Discontinued Medications Generic Name Dose Route Start Last Admin Trade Name Freq PRN Reason Stop Dose Admin Ibuprofen 600 mg 06/20/25 05:25 06/20/25 05:31 Ibuprofen 200 Mg Tablet PO 06/20/25 05:26 600 mg ONCE ONE Administration MDM - SOB/Dyspnea MDM Narrative Medical decision making narrative: Margaret is a 25-year-old female the past medical history of asthma who presents to the emergency department for evaluation of shortness of breath. Upon arrival patient is nontoxic appearing, afebrile, no distress. Patient hemodynamically stable vital signs within normal limits. Patient with no tachycardia, no tachypnea, no respiratory distress, no hypoxia, oxygen 98% on room air. Differential diagnosis includes but is not limited to ACS versus costochondritis versus musculoskeletal versus inflammatory versus asthma versus pneumonia versus pneumothorax versus pleural effusion versus less likely PE among others. I reviewed EKG which demonstrates normal sinus rhythm with a ventricular rate of 62 beats per minute, normal axis, no acute ischemic change. I personally viewed interpreted chest x-ray which demonstrates no focal infiltrate, no pleural effusion, pneumothorax, pulmonary edema. Overall patient nontoxic appearing, hemodynamically stable, patient is PERC negative so less likely PE and no further workup at this time. Clinical presentation EKG reassuring less likely ACS. Clinically patient with no signs of acute infection. I suspect most likely inflammatory etiology. Patient was treated with a dose of ibuprofen in the emergency department as well as recommendation to stay indoors while this smoke and air quality is poor given her history of asthma. Encouraged close outpatient follow-up, continue supportive care, return precautions discussed. Patient understands and agrees with the plan. Medical Records Attestation: I reviewed the patient's medical records. Discharge Plan Discharge Clinical Impression: Shortness of breath Patient Disposition: Home, Self-Care Condition: Stable Additional Instructions: Please follow-up with your primary care provider in the next 2-3 days for further evaluation and follow-up, please rest, continue your own medications. Please try to stay indoors and avoid exposure to smoke, and poor air quality. Please alternate taking Tylenol 1000 mg and ibuprofen 600 mg every 6 hours as needed for pain. Please return to the emergency department if any worsening symptoms. It was a pleasure taking care of you today. We hope you feel better soon. Prescriptions: No Action emollient [Vanicream] Cream 1 applic topical DAILY Qty: 500 0RF cyclobenzaprine 5 mg tablet 5 - 10 mg PO Q8H PRN (Reason: muscle spasm) nortriptyline 10 mg capsule 10 mg PO QHS Qty: 30 0RF ketorolac 10 mg tablet 10 mg PO Q6H PRN (Reason: pain) Qty: 20 0RF Rx Instructions: maximum total duration of 5 days from all oral, intranasal, or parenteral formulations amoxicillin-pot clavulanate 875-125 mg tablet 1 tab PO BID Qty: 10 0RF Follow Up/Referrals: Jaquelin Shipley MD [Primary Care Provider, Family Practice] Stand Alone Forms: [employer] Info Instructions
[2025-06-20 05:31] VITALS: TEMP 36.6
[2025-06-20] MEDS: IBUPROFEN 200 MG TABLET 600 MG PO (05:31)
[2025-06-20 05:33] VITALS: PULSE 71; RESP 16; O2SAT 99
[2025-06-20 05:49] VITALS: BP 124/87; PULSE 71; RESP 16; TEMP 36.6
== END 2025-06-20 05:58 | disposition home or self-care (01) ==
LOC: ED 05:38
PROVIDERS: Emergency Provider Emergency Medicine; PCP Student in an Organized Health Care Education/Training Program
DX: R06.02 Shortness of breath (principal)
CPT/HCPCS: 71046; 93005; 99284; 99285; A9270

== ENCOUNTER 2025-07-26 00:25 | Emergency (ER) | payer MEDICAID, SELFPAY ==
--- OUTSIDE RECORDS SUMMARY | 2025-07-26 00:27 | XMS_ITS | Clinical Summary ---
Author Organization [facility] Address [address] [facility] 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 Gender Identity Not on file Sexual Orientation [...] PREVENTIVE VISIT 05/11/2022 05/11/2021 PAP 05/11/2024 05/11/2021 PHQ-2 (once per calendar year) 2024 COVID-19 VACCINE (1 - season) 2025 INFLUENZA VACCINE (#1) 2025 DTAP/TDAP/TD VACCINE (5 [...] Procedure Name Priority Date/Time Associated Diagnosis Comments HIV ANTIGEN ANTIBODY COMBO Routine 08/28/2015 7:48 AM CDT CHLAMYDIA TRACHOMATIS PCR Timed 08/27/2015 2:30 PM CDT from Last 3 Months or Most Recently Relevant to Health Maintenance Results * HIV Antigen Antibody Combo (08/28/2015 7:48 AM CDT) HIV Antigen Antibody Combo Nonreactive HIV-1 p24 Ag & HIV-1/HIV-2 Ab Not Detected NR [facility] Blood specimen (specimen) 08/28/2015 7:48 AM CDT 08/28/2015 7:49 AM CDT Guillermo Torres MD LAB - BLOOD ORDERABLES Ashley l Result Performing Organization Address City/[facility]/ZIP Co de Phone Number [facility] [address] [place] [address] * Chlamydia trachomatis PCR (08/27/2015 2:30 PM CDT) Specimen Description Urine [facility] Chlamydia Trachomatis PCR Negative Negative for C. trachomatis rRNA by industrial health engineer mediated amplification. A negative result by industrial health engineer mediated amplification does not preclude the presence of C. trachomatis infection because results are dependent on proper and adequate collection, absence of inhibitors, and sufficient rRNA to be detected. [facility]G [facility] Urine specimen (specimen) 08/27/2015 2:30 PM CDT 08/27/2015 4:52 PM CDT Guillermo Torres MD LAB - MICRO GENERAL ORDERAB LES Final Result Performing Organization Address [facility] Co de Phone Number [facility] [address] [place] [address], [address] [address] from Last 3 Months or Most Recently Relevant to Health Maintenance [place] [address] [place] [address] Advance Directives For more information, please contact: [phone] * Full Code (Latest Code Status on File) Date Activated Date Inactivated Comments 08/27/2015 2:47 AM 09/01/2015 4:08 PM Care Teams Pharmaceutical Development Technician Relationship Specialty Start Date End Date Jaquelin Shipley MD Gloria [address] [address] PCP - General Family Medicine 04/06/25
--- OUTSIDE RECORDS SUMMARY | 2025-07-26 00:27 | XMS_ITS | Clinical Summary ---
Author Organization [facility] Address [address] [place] [address] Care Team Providers Care Clay Worker Name Role Phone Elsewhere, Pcp Primary Care Provider Unavailabl e Source Comments Patient records contain information from all sites at [facility]. For routine questions regarding patient records, call [phone] during business hours, M-F 8:00 AM - 5:00 PM Central Time. Record requests for emergency care only can be directed to [phone] at any time.[facility] Allergies Active Allergy Reactions Criticality Noted Date [...] on file Legal Sex Female 9:23 AM PHYSICIAN ASST Gender Identity Not on file Sexual Orientation Not on file Last Filed Vital Signs Vital Sign Reading Time Taken Comments Blood Pressure 108/64 10/26/2024 2:34 AM PHYSICIAN ASST Pulse 68 10/26/2024 2:34 AM PHYSICIAN ASST Temperature 36.5 C (97.7 F) 10/26/2024 1:21 AM PHYSICIAN ASST Respiratory Rate 16 10/26/2024 2:34 AM PHYSICIAN ASST Oxygen Saturation 97% 10/26/2024 2:34 AM PHYSICIAN ASST Inhaled Oxygen Concentration - - Weight 66 kg (145 lb 8.1 oz) 10/26/2024 1:20 AM PHYSICIAN ASST Height 159 cm (5' 2.6) 08/29/2017 12:15 PM CDT Body Mass Index 26.11 08/29/2017 12:15 PM CDT Plan of Treatment Health Maintenance Due Date Last Done Comments Depression Monitoring (PHQ-9) 1999 HIV Screening 1999 Hepatitis C Screening 1999 Tobacco Cessation counseling 1999 Pneumococcal vaccine (0-49 y ears) (1 of 2 - PCV) 2018 Cervical/Vaginal Cancer Screening 05/11/2024 021 Depression Monitoring (PHQ-9 for quality tracking) 11/19/2024 COVID-19 Vaccine ( - 2023-2 5 season) 2025 Influenza Vaccine (#1) 2025 DTaP,Tdap,and Td Vaccines [...] M ICROBIOLOGY - GENERAL ORDERABLES Final Result [facility] [address] [place] [address], [facility] [place] [address] [place] [id number] from Last 3 Months or Most Recently Relevant to Health Maintenance Insurance ARE Care Teams Clay Worker Relationship Specialty Start Date End Date Elsewhere, Pcp PCP - General 12/08/19
--- OUTSIDE RECORDS SUMMARY | 2025-07-26 00:28 | XMS_ITS | Clinical Summary ---
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 Gender Identity Not on file Sexual Orientation Not on file Plan of Treatment Health Maintenance Due Date Last Done Comments Pap Smear 05/11/2024 05/11/2021 COVID-19 Vaccine ( season) 2025 Influenza Vaccine (#1) 2025 DTaP,Tdap,and Td Vaccines (5 - Td or Tdap) 07/28/2025 07/28/2015, 03/06/2014, 06/19/2013, Additional history exists HPV Vaccines Completed 03/20/2016, 07/2015, 07/28/2015, Additional history exists Pneumococcal Vaccine: Pediatrics (0 to 5 Years) and At-Risk Patients (6 to 49 Years) Aged Out No longer eligible based on patient's age to complete this topic Insurance [facility]
--- OUTSIDE RECORDS SUMMARY | 2025-07-26 00:28 | XMS_ITS | Clinical Summary ---
Author Organization [facility] Address [address] [place] [address] Care Team Providers Care Hose Builder Name Role Phone Jaquelin Shipley MD Primary [...] Encounters Date Type Department Care Team Description 06/20/2025 Orders Only [facility] Scanner 1 scan: (1-Ord) DASIA, XR CHEST 2V, 06/20/2025 06/04/2025 Telephone [facility] [address] [place] [address] Jaquelin Shipley MD Referral (Neurology) 05/20/2025 Telephone [facility] [address] [place] [address] Jaquelin Shipley MD Medication Management (ketorolac 10 mg tablet) 05/20/2025 Telephone [facility] [address] [place] [address] Jaquelin Shipley MD Questions 05/20/2025 Telephone [facility] [address] [place] [address] Jaquelin Shipley MD Medication Management (Amoxicillian) 05/20/2025 Telephone [facility] [address] [place] [address] Jaquelin Shipley MD Medication Management (Amoxocilin /Ketorolac/) 04/30/2025 Telephone [facility] [address] [place] [address] Jaquelin Shipley MD Referral from Last 3 [...] on file 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 Gender Identity Not on file Sexual Orientation [...] Pap test for age 21-65 05/11/2024 05/11/2021 BMI (ht and wt on same day) for age 18+ 02/03/2025 02/04/2024, 12/28/2023, 07/26/2023, Additional history exists Depression screening for age 12+ 02/07/2025 02/08/2024, 02/04/2024, 02/04/2024, Additional history exists COVID-19 vaccine series ( season) 2025 Influenza Vaccine (#1) 2025 Tetanus booster 07/28/2025 07/28/2015, 02/17, 06/19/2013 RSV vaccine for adults or (1 - 1-dose 75+ series) 2074 HPV series for age 9-45 Completed 03/20/20 16, 07/28/2015, 05/29/2014 Hepatitis B series for 19+ Completed 03/20, 05/29/2014, 07/27/2004 Pneumococcal series for age 6-49 Aged Out No longer eligible based on patient's age to complete this topic Procedures Procedure Name Priority Date/Time Associated Diagnosis Comments SCAN-RADIOLOGY REPORT 06/20/2025 12:00 AM CDT SOLUTION DIRECTOR THIN PREP PAP SCREEN IMAGED Routine 05/11/2021 11:50 AM CDT Screening for cervical cancer from Last 3 Months or Most Recently Relevant to Health Maintenance Results * SCAN-RADIOLOGY REPORT (06/20/2025 12:00 AM CDT) Anatomical Region Laterality Modality Other us Scanner OTHER Final Result * SOLUTION DIRECTOR THIN PREP PAP SCREEN IMAGED [[id number]] (05/11/2021 11:50 AM CDT) Case Report Gynecologic Cytology Report Case: [id number] Authorizing Provider: Rubi Campbell MD Collected: 05/11/2021 1150 Ordering Location: [facility] Received: 05/11/2021 1204 Clinic First Screen: Baccam, Minie Rescreen: Tanesha Kuo Specimen: SOLUTION DIRECTOR ThinPrep Vial Screening, Cervical 05/23/2021 10:29 AM CDT [facility] INTERPRETATION/ RESULT NEGATIVE FOR INTRAEPITHELIAL LESION OR MALIGNANCY (NIL) (none) 05/23/2021 10:29 AM CDT [facility] at 1029 CDT SPECIMEN ADEQUACY Satisfactory for evaluation Endocervical component present 05/23/2021 10:29 AM CDT [facility] HPV REQUEST HPV if ASCUS 05/23/2021 10:29 AM CDT [facility] Date of LMP 05/01/21 05/23/2021 10:29 AM CDT [facility] Last Pap Date n/a 05/23/2021 10:29 AM CDT [facility] Last Pap Result First Pap/Unknown 10:29 AM CDT [facility] Abnormal Pap or Lisman Bx in last 5 years No 05/23/2021 10:29 AM CDT [facility] Menstrual Status Regular Periods 05/23/2021 10:29 AM CDT [facility] Lisman Bx Done Today No 05/23/2021 10:29 AM CDT [facility] Additional Information None given 05/23/2021 10:29 AM CDT [facility] Comment: Cytology is screened at [facility] [place] [facility] - [address], [place] [address] [address] [facility] - [address] [place] [address] and [facility] - [address] [place] [address] Interpreted at [facility] - [address], [place] [address] Automated Review Successful 05/23/2021 10:29 AM CDT [facility] Comment:Specimen processed s uccessfully by automated training engineer device, ThinPrep Imaging System, [employer] Note The pap test is a [...] and malignant lesions. 05/23/2021 10:29 AM CDT [facility] Other (Cervical) Non-Blood / Unknown 05/11/2021 11:50 AM CDT 05/11/2021 12:04 PM CDT Rubi Campbell MD PATHOLOGY/CYTOLOGY Final Resu lt [facility] [address] [place] [address], from Last 3 Months or Most Recently Relevant to Health Maintenance Insurance MEDICAID RESTRICTED PATIENT PROG Care Teams Hose Builder Relationship Specialty Start Date End Date Jaquelin Shipley MD PCP - General Family Practice 01/30/25
[2025-07-26 00:42] VITALS: BP 120/81; PULSE 65; RESP 16; TEMP 36.7; O2SAT 99; BMI 24.9
--- NOTE | 2025-07-26 00:59 | ED_ITS ---
HPI - Dental/Oral General Chief complaint: Dental/Oral/Mouth Injury/Pain Stated complaint: tooth pain Time Seen by Provider: 07/26/25 00:30 History of Present Illness HPI Narrative: Patient is a 25-year-old woman who presents with left mandibular pain after dental extraction last week. She has had no other significant symptoms other than general malaise. She has had no fevers no chills no night sweats. She has no drainage or discharge. She has no stiff neck no headache no change in her vision. She is wondering if she has a dental infection. Related Data Home Medications ?Medication ?Instructions ?Recorded ?Confirmed cyclobenzaprine 5 mg tablet 5 - 10 mg PO Q8H PRN muscl e spasm 04/13/25 07/23/25 Previous Rx's ?Medication ?Instructions ?Recorded emollient (Vanicream topical) 1 applic topical DAILY # 500 grams 09/24/24 nortriptyline 10 mg capsule 10 mg PO QHS #30 caps 03/20 05/13 ketorolac 10 mg tablet 10 mg PO Q6H PRN pain #20 ta bs 05/19/25 lidocaine HCl 2 % mucosal solution 1 applic mucous mem brane BID PRN 07/23/25 (Lidocaine Viscous) pain #100 mL amoxicillin 500 mg capsule 500 mg PO Q8H #15 caps 06/12 Allergies Allergy/AdvReac Type Severity Reaction Status Date / Time latex Allergy Verified 07/23/25 14:44 prednisone Allergy Verified 07/23/25 14:44 Review of Systems Status of ROS: Reports: 10 or more systems reviewed and unremarkable except as noted in History and below [facility] Medical History Hypertension ?I10 - Essential (primary) hypertension (ICD-10) Heartburn ?R12 - Heartburn (ICD-10) Surgical History No significant past surgical history Social History Smoking Status: Never smoker Do you use any of these nicotine containing products: None Second hand tobacco smoke exposure: No How often do you have a drink containing alcohol: never How often do you have six or more drinks on one occasion: Never AUDIT-C Alcohol total score: 0 Non-prescribed substance use: denies use service: No Exam Narrative: Exam Narrative: EXAM GENERAL: Patient appears comfortable and well. Poor dentition with swelling noted along the left mandible. EYES: No scleral icterus. ENT: Tympanic membranes and oropharynx normal. THYROID: no thyroid nodules or thyromegaly. LYMPH: No supraclavicular or cervical lymphadenopathy. SKIN: Visible skin seen during exam normal or with benign process only. EXT: No dependent lower extremity pedal edema. HEART: Regular rate and rhythm with no murmurs, rubs, or gallops. LUNGS: Clear to auscultation bilaterally with no crackles or wheezes. ABD: Soft, non tender, non distended. PSYCH: Good eye contact, speech is not pressured. Const: Vital Signs, click to edit/add: Vital Signs - 24 hr 07/26/25 00:42 Temperature 98.0 F Pulse Rate [Right Pulse Oximeter] 65 Respiratory Rate 16 Blood Pressure [Le ft Upper Arm] 120/81 Pulse Oximetry 99 Oxygen Delivery Me thod Room Air Course Course ED Course: Patient seen examined. She appears have a dental infection. I do not see any other etiologies the patient is otherwise in good health. I did prescribe amoxicillin for the next 7 days recommend dental follow-up. Tylenol Motrin rest and fluids. Vital Signs Vital signs: Initial Vital Signs Temperature 98.0 F 07/26/25 00:42 Temperature Source Temporal Artery Scan 07/26/25 00:42 Pulse Rate 65 07/26/25 00:42 Respiratory Rate 16 07/26/25 00:42 Blood Pressure 120/81 07/26/25 00:42 Blood Pressure Mean 94 07/26/25 00:42 Blood Pressure Position Sitting 07/26/25 00:42 Pulse Oximetry 99 07/26/25 00:42 Oxygen Delivery Method Room Air 07/26/25 00:42 Vital Signs Temperature 98.0 F 07/26/25 00:42 Pulse Rate 65 07/26/25 00:42 Respiratory Rate 16 07/26/25 00:42 Blood Pressure 120/81 07/26/25 00:42 Pulse Oximetry 99 07/26/25 00:42 Oxygen Delivery Method Room Air 07/26/25 00:42 Temperature 98.0 F 07/26/25 00:42 Pulse Rate 65 07/26/25 00:42 Respiratory Rate 16 07/26/25 00:42 Blood Pressure 120/81 07/26/25 00:42 Pulse Oximetry 99 07/26/25 00:42 Oxygen Delivery Method Room Air 07/26/25 00:42 Discharge Plan Discharge Clinical Impression: Dental infection Patient Disposition: Home, Self-Care Condition: Stable Instructions: Toothache (ED) Additional Instructions: Amoxicillin as directed Tylenol Motrin Rest Ice Fluids Activity Level: No Restrictions Discharge Diet: Regular Prescriptions: New amoxicillin 500 mg capsule 500 mg PO Q8H Qty: 15 0RF No Action emollient [Vanicream] Cream 1 applic topical DAILY Qty: 500 0RF lidocaine HCl [Lidocaine Viscous] 2 % solution 1 applic mucous membrane BID PRN (Reason: pain) Qty: 100 0RF cyclobenzaprine 5 mg tablet 5 - 10 mg PO Q8H PRN (Reason: muscle spasm) nortriptyline 10 mg capsule 10 mg PO QHS Qty: 30 0RF ketorolac 10 mg tablet 10 mg PO Q6H PRN (Reason: pain) Qty: 20 0RF Rx Instructions: maximum total duration of 5 days from all oral, intranasal, or parenteral formulations Follow Up/Referrals: Jaquelin Shipley MD [Primary Care Provider, Family Practice] Stand Alone Forms: MyHealth Info Instructions
[2025-07-26] MEDS: AMOXICILLIN 250 MG CAPSULE 500 MG PO (01:16)
== END 2025-07-26 01:18 | disposition home or self-care (01) ==
LOC: ED 01:08
PROVIDERS: Emergency Provider Internal Medicine; PCP Student in an Organized Health Care Education/Training Program
DX: K04.7 Periapical abscess without sinus (principal)
CPT/HCPCS: 99283; A9270

== ENCOUNTER 2025-07-31 12:08 | Emergency (ER) | payer MEDICAID, SELFPAY ==
--- OUTSIDE RECORDS SUMMARY | 2025-07-31 12:11 | XMS_ITS | Clinical Summary ---
Author Organization [facility] Address [address] [facility] 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 trachomatis rRNA by loader demolder mediated amplification. A negative result by loader demolder mediated amplification does not preclude the presence of C. trachomatis infection because results are dependent on proper and adequate collection, absence of inhibitors, and sufficient rRNA to be detected. NEG [facility] Urine specimen (specimen) 08/27/2015 2:30 PM CDT 08/27/2015 4:52 PM CDT Guillermo Torres MD LAB - MICRO GENERAL ORDERAB LES Final Result Performing Organization Address [facility] Co de Phone Number [facility] [address] [place] [address], [address] [address] from Last 3 Months or Most Recently Relevant to Health Maintenance Insurance [place] Advance Directives For more information, please contact: [phone] * Full Code (Latest Code Status on File) Date Activated Date Inactivated Comments 08/27/2015 2:47 AM 09/01/2015 4:08 PM Care Teams Certified Nurse Practitioner Relationship Specialty Start Date End Date Jaquelin Shipley MD [address] [place] [address] PCP - General Family Medicine 04/06/25
--- OUTSIDE RECORDS SUMMARY | 2025-07-31 12:11 | XMS_ITS | Clinical Summary ---
Author Organization [facility] Address [address] [place] [address] Care Team Providers Care Scalder Name Role Phone Elsewhere, Pcp Primary Care Provider Unavailabl e Source Comments Patient records contain information from all sites at [facility]. For routine questions regarding patient records, call [phone] during business hours, M-F 8:00 AM - 5:00 PM Central Time. 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 Gender Identity Not on file Sexual Orientation Not on file Last Filed Vital Signs Vital Sign Reading Time Taken Comments Blood Pressure 108/64 10/26/2024 2:34 AM DRAW STRING KNOTTER Pulse 68 10/26/2024 2:34 AM DRAW STRING KNOTTER Temperature 36.5 C (97.7 F) 10/26/2024 1:21 AM DRAW STRING KNOTTER Respiratory Rate 16 10/26/2024 2:34 AM DRAW STRING KNOTTER Oxygen Saturation 97% 10/26/2024 2:34 AM DRAW STRING KNOTTER Inhaled Oxygen Concentration - - Weight 66 kg (145 lb 8.1 oz) 10/26/2024 1:20 AM DRAW STRING KNOTTER Height 159 cm (5' 2.6) 08/29/2017 12:15 [...] M ICROBIOLOGY - GENERAL ORDERABLES Final Result [facility] [address] [place] [address], [facility] [place] [address] [place] [id number] from Last 3 Months or Most Recently Relevant to Health Maintenance Insurance ARE Care Teams Scalder Relationship Specialty Start Date End Date Elsewhere, Pcp PCP - General 12/08/19
--- OUTSIDE RECORDS SUMMARY | 2025-07-31 12:11 | XMS_ITS | Clinical Summary ---
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
--- OUTSIDE RECORDS SUMMARY | 2025-07-31 12:11 | XMS_ITS | Clinical Summary ---
Author Organization [email or web address] Address [address] [place] [address] Care Team Providers Care Business Objects Developer Name Role Phone Jaquelin Shipley MD Primary [...] Department Care Team Description 06/20/2025 Orders Only [facility] Scanner 1 scan: (1-Ord) DASIA, XR CHEST 2V, 06/20/2025 06/04/2025 Telephone [facility] [address] [place] [address] Jaquelin Shipley MD Referral (Neurology) 05/20/2025 Telephone [facility] [address] [place] [address] Jaquelin Shipley MD Medication Management (ketorolac 10 mg tablet) 05/20/2025 Telephone [facility] [address] [place] [address] Jaquelin Shipley MD Questions 05/20/2025 Telephone [facility] [address] [place] [address] Jaquelin Shipley MD Medication Management (Amoxicillian) 05/20/2025 Telephone [facility] [address] [place] [address] Jaquelin Shipley MD Medication Management (Amoxocilin /Ketorolac/) 04/30/2025 Telephone [facility] [address] [place] [address] Jaquelin Shipley MD Referral from Last 3 [...] on file 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 Gender Identity Not on file Sexual [...] Comments SCAN-RADIOLOGY REPORT 06/20/2025 12:00 AM CDT [facility] WORK[facility] THIN PREP PAP SCREEN IMAGED Routine 05/11/2021 11:50 AM CDT Screening for cervical cancer from Last 3 Months or Most Recently Relevant to Health Maintenance Results * SCAN-RADIOLOGY REPORT (06/20/2025 12:00 AM CDT) Anatomical Region Laterality Modality Other us Scanner OTHER Final Result * COMM[facility] CENTER WORKER THIN PREP PAP SCREEN IMAGED [[id number]] (05/11/2021 11:50 AM CDT) Case Report Gynecologic Cytology Report Case: [id number] Authorizing Provider: Rubi Campbell MD Collected: 05/11/2021 1150 Ordering Location: [facility] Received: 05/11/2021 1204 Clinic First Screen: Baccam, Minie Rescreen: Tanesha Kuo Specimen: [facility] WORK[facility] ThinPrep Vial Screening, Cervical 05/23/2021 10:29 AM CDT [facility] INTERPRETATION/ RESULT NEGATIVE FOR INTRAEPITHELIAL LESION OR MALIGNANCY (NIL) (none) 05/23/2021 10:29 AM CDT [facility] at 1029 CDT SPECIMEN ADEQUACY Satisfactory for evaluation Endocervical component present 05/23/2021 10:29 AM CDT [facility] HPV REQUEST HPV if ASCUS 05/23/2021 10:29 AM CDT [facility] Date of LMP 05/01/21 05/23/2021 10:29 AM CDT [facility] Last Pap Date n/a 05/23/2021 10:29 AM CDT [facility] Last Pap Result First Pap/Unknown 10:29 AM CDT [facility] Abnormal Pap or Downs Bx in last 5 years No 05/23/2021 10:29 AM CDT [facility] Menstrual Status Regular Periods 05/23/2021 10:29 AM CDT [facility] Downs Bx Done Today No 05/23/2021 10:29 AM CDT [facility] Additional Information None given 05/23/2021 10:29 AM CDT [facility] Comment: Cytology is screened at [facility] [place] [facility] - [address], [place] [address] and [facility] - [address] [place] [address] and [facility] - [address] [place] [address] Interpreted at [facility] - [address], [place] [address] Automated Review Successful 05/23/2021 10:29 AM CDT [facility] Comment:Specimen processed s uccessfully by automated structural engineering technician device, ThinPrep Imaging System, [employer] Note The pap test is a [...] and malignant lesions. 05/23/2021 10:29 AM CDT [facility] Other (Cervical) Non-Blood / Unknown 05/11/2021 11:50 AM CDT 05/11/2021 12:04 PM CDT Rubi Campbell MD PATHOLOGY/CYTOLOGY Final Resu lt [facility] [address] [place] [address], from Last 3 Months or Most Recently Relevant to Health Maintenance Insurance MEDICAID RESTRICTED PATIENT PROG Care Teams Business Objects Developer Relationship Specialty Start Date End Date Jaquelin Shipley MD PCP - General Family Practice 01/30/25
[2025-07-31 12:56] VITALS: BP 136/82; PULSE 77; RESP 18; TEMP 37; O2SAT 97; BMI 24.7
--- NOTE | 2025-07-31 14:11 | ED.DENTAL ---
HPI - Dental/Oral General Time Seen by Provider: 14:12 Date Seen: 07/31/25 Chief complaint: Dental/Oral/Mouth Injury/Pain Stated complaint: Throat/mouth pain Time Seen by Provider: 07/31/25 13:42 Source: patient and RN notes reviewed Mode of arrival: ambulatory Limitations: no limitations History of Present Illness HPI Narrative: This 25-year-old female is coming to the ER from request of her oral surgery office. She states she went to mid with dental in oral surgery, has been dealing with a dental infection along her left lower jaw for 2 months. She believes she was on a different antibiotic, just completed amoxicillin. She contacted the dental office today and they told her to go to the ER to get a different antibiotic. She basically states she has had migraines for 4 months and feels like she has fevers with them. She is having increased dental pain on the left lower jaw where she had a molar pulled. 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 She states if she can go to the memory care unit that she believes she can complete that job and it is duties, is more just sitting with residence. Related Data Previous Rx's ?Medication ?Instructions ?Recorded emollient (Vanicream topical) 1 applic topical DAILY #500 grams 09/24/24 amoxicillin 500 mg capsule 500 mg PO Q8H #15 caps 07/26/25 amoxicillin 875 mg-potassium 1 tab PO BID #20 tabs 07/31/25 clavulanate 125 mg tablet Allergies Allergy/AdvReac Type Severity Reaction Status Date / Time latex Allergy Verified 07/23/25 14:44 prednisone Allergy Verified 07/23/25 14:44 Review of Systems Narrative: As per HPI. PFSH PFSH Medical History Hypertension ?I10 - Essential (primary) hypertension (ICD-10) Heartburn ?R12 - Heartburn (ICD-10) Surgical History No significant past surgical history Social History Smoking Status: Never smoker Do you use any of these nicotine containing products: None Second hand tobacco smoke exposure: No How often do you have a drink containing alcohol: never How often do you have six or more drinks on one occasion: Never AUDIT-C Alcohol total score: 0 Non-prescribed substance use: denies use service: No Exam Const: Vital Signs, click to edit/add: Vital Signs - 24 hr 07/31/25 12:56 Temperature 98.6 F Pulse Rate [Pulse Oximeter] 77 Respiratory Rate 18 Blood Pressure [Ri ght Upper Arm] 136/82 Pulse Oximetry 97 Oxygen Delivery Me thod Room Air This 25-year-old female is alert, interactive, no apparent distress. Vitals are stable, she is afebrile. I do sense that she may have just a little tissue fullness or swelling along the left lower jaw line. There is no erythema. There is no submental adenopathy or masses. TMs bilaterally are normal. She is able to fully open her mouth. She is missing the molars on the left lower side on her left jaw. There is just 1 small linear area of erythema along the inner gumline but there is no fluctuance. She is tender when I palpate over the bridge in that area. Almost feels if there is some firmer material medially along this gum line but the whole area is covered with mucosa, see no residual dental tissue. I really cannot palpate any fluctuant area or see any evidence of abscess. Documenting provider has reviewed patient's vital signs: yes Course Course ED Course: Have reviewed with this patient that I will write her a note for limitations at work. We have discussed antibiotics. She states she cannot tolerate clindamycin, gave her severe back pain before. Reviewed with her that I honestly had not heard of that as a side effect before but I have done this long enough to note that things can happen. Each patient is individual and certainly can have different side effects from medicines. She had been on amoxicillin. We can increase the coverage to Augmentin. She is in agreement with this. She has tolerated this before. I cannot do dental x-rays here. From what I see clinically and her presentation, do not feel she needs any CT imaging. Vital Signs Vital signs: Initial Vital Signs Temperature 98.6 F 07/31/25 12:56 Temperature Source Temporal Artery Scan 07/31/25 12:56 Pulse Rate 77 07/31/25 12:56 Respiratory Rate 18 07/31/25 12:56 Blood Pressure 136/82 07/31/25 12:56 Blood Pressure Mean 100 07/31/25 12:56 Blood Pressure Position Sitting 07/31/25 12:56 Pulse Oximetry 97 07/31/25 12:56 Oxygen Delivery Method Room Air 07/31/25 12:56 Vital Signs Temperature 98.6 F 07/31/25 12:56 Pulse Rate 77 07/31/25 12:56 Respiratory Rate 18 07/31/25 12:56 Blood Pressure 136/82 07/31/25 12:56 Pulse Oximetry 97 07/31/25 12:56 Oxygen Delivery Method Room Air 07/31/25 12:56 Temperature 98.6 F 07/31/25 12:56 Pulse Rate 77 07/31/25 12:56 Respiratory Rate 18 07/31/25 12:56 Blood Pressure 136/82 07/31/25 12:56 Pulse Oximetry 97 07/31/25 12:56 Oxygen Delivery Method Room Air 07/31/25 12:56 Discharge Plan Discharge Clinical Impression: Dental infection Patient Disposition: Home, Self-Care Condition: Stable Instructions: Dental Abscess (ED) Additional Instructions: Start Augmentin and take as prescribed. You really need to follow-up with a dentist or the oral surgeon. Talked to them about possibly having repeat imaging in with dental films. Unclear if there could be any retained fragments or deeper abscess that I cannot see visually today. If you develop fevers, increasing facial swelling or pain, may need to return to the ER if your dental office is not open. Did provide you a work note as requested. Activity Level: Activity as Tolerated Prescriptions: New amoxicillin-pot clavulanate 875-125 mg tablet 1 tab PO BID Qty: 20 0RF No Action emollient [Vanicream] Cream 1 applic topical DAILY Qty: 500 0RF amoxicillin 500 mg capsule 500 mg PO Q8H Qty: 15 0RF Follow Up/Referrals: Jaquelin Shipley MD [Primary Care Provider, Family Practice] Stand Alone Forms: MyHealth Info Instructions
== END 2025-07-31 14:57 | disposition home or self-care (01) ==
PROVIDERS: Emergency Provider Family Medicine; PCP Student in an Organized Health Care Education/Training Program
DX: K04.7 Periapical abscess without sinus (principal)
CPT/HCPCS: 99282; 99283

== ENCOUNTER 2025-08-23 00:10 | Emergency (ER) | payer MEDICAID, SELFPAY ==
--- OUTSIDE RECORDS SUMMARY | 2025-08-19 20:30 | XMS_ITS | Encounter Summary ---
Author Organization [place] Address [address] [facility] [place] [address] Care Team Providers Care Community Liaison Name Role Phone Jaquelin Shipley MD Primary Care Provider Reason for Visit * Reason Comments Dental Pain Medication Refill Encounter Details Date Type Department Care Team (Late st Contact Info) Description 08/19/2025 8:30 PM CDT - 08/19/2025 9:10 PM CDT Emergency [facility] Emergency Dept [address] [place] [address] Michele Vasquez MD [facility] [address] [facility] [place] [id number] Pain, dental (Primary Dx) Discharge Disposition: Home or Self Care Social History Tobacco Use Types Packs/Day Years Used Date Smoking Tobacco: Never Assessed Adolescent Education Answer Date Record ed Getting School Help Needed Not on file 10/17 Comments Unknown Sex and Gender Information Value Date Recorded Sex Assigned at Not on file 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 Gender Identity Not on file Sexual Orientation Not on file documented as of this encounter Last Filed Vital Signs Vital Sign Reading Time Taken Comments Blood Pressure 122/81 08/19/2025 6:49 PM CDT Pulse 76 08/19/2025 6:49 PM CDT Temperature 36.9 C (98.4 F) 08/19/2025 6:49 PM CDT Respiratory Rate 18 08/19/2025 6:49 PM CDT Oxygen Saturation 100% 08/19/2025 6:49 PM CDT Inhaled Oxygen Concentration - - Weight - - Height - - Body Mass Index - - documented in this encounter Discharge Instructions * Discharge Instructions* Michele Vasquez MD - 08/19/2025 8:58 PM CDT Discharge Instructions Dental Pain You have been seen today for a toothache. Your pain may be caused by an exposed nerve, an infection(pulpitis), a root abscess, or other problems. You will need to see a dentist for a solution to your tooth problem. Emergency Department care is only to help control your problem until you can see a dentist. Today, we did not find any sign that your toothache was caused by a serious condition, but s ometimes symptoms develop over time and cannot be found during an emergency visit, so it is very important that you follow up with your dentist. Return to the Emergency Department if: You develop a fever over 101 degrees Fahrenheit. You can???t open your mouth normally, can???t move your tongue well, or can???t swallow. You have new or increased swelling of your face or neck. You develop drainage of pus or foul smelling material from around your tooth. What can I do to help myself? Take any antibiotic the doctor may have prescribed for you today. Avoid very hot or very cold foods as both can cause pain. Make an appointment to see a dentist as soon as possible. If you wish, we can provide you with a list of low-cost dental clinics. If you were given a prescription for [...] call or return to the Emergency Department. Opioid Medication Information Pain medications are among the most commonly prescribed medicines, so we are including this information for all our patients. If you did not receive pain medication or get a prescription for pain medicine, you can ignore it. You may have been given a prescription for an opioid (narcotic) pain medicine and/or have received a pain medicine while here in the Emergency Department. These medicines can make you drowsy or impaired. You must not drive, operate dangerous equipment, or engage in any other dangerous activities while taking these medications. If you drive while taking these medications, you could be arrested forDUI, or driving under the influence. Do not drink any alcohol while you are taking these medications. Opioid pain medications can cause addiction. If you have a history of chemical dependency of any type, you are at a higher risk of becoming addicted to pain medications. Only take these prescribed medications to treat your pain when all other options have been tried. Take it for as short a time andas few doses as possible. Store your pain pills in a secure place, as they are frequently stolen and provide a dangerous opportunity for children or visitors in your house to start abusing these powerful medications. We will not replace any lost or stolen medicine. As soon as your pain is better, you should flush all your remaining medication. Many prescription pain medications contain Tylenol?? (acetaminophen), including Vicodin??, Tylenol #3??, [place]??, Lortab??, and Percocet??. You should not take any extra pills of Tylenol?? if you areusing these prescription medications or you can get very sick. Do not ever take more than 3000 mg of acetaminophen in any 24 hour period. All opioids tend to cause constipation. Drink plenty of water and eat foods that have a lot of fiber, such as fruits, vegetables, prune juice, apple juice and high fiber cereal. Take a laxative if you don???t move your bowels at least every other day. Miralax??, Milk of Magnesia, Colace??, or Senna?? can be used to keep you regular. Remember that you can always come back to the Emergency Department if you are not able to see your regular doctor in the amount of time listed above, if you get any new symptoms, or if there is anything that worries you. documented in this encounter Medications at Time of Discharge escitalopram (LEXAPRO) 10 MG tabletIndications :Suicidal ideation Take 1 tablet (10 mg) by mouth daily 30 tablet 0 08/31/2015 ketorolac (TORADOL) 10 MG tablet Take 1 tablet (10 mg) by mouth every 6 hours as needed for moderate pain. 20 tablet 08/19/2025 norgestimate-ethi nyl estradiol (ORTHO-CYCLEN, SPRINTEC) 0.25-35 MG-MCG per tabletIndications :Pt has home supply Take 1 tablet by mouth every evening documented as of this encounter ED Notes * Michele Vasquez MD - 08/19/2025 8:42 PM CDT Emergency Department Note History of Present Illness Chief Complaint Dental Pain and Medication Refill HPI Margaret Quick is a 25 year old female presenting with dental pain. The patient was seen by a dentist today and was given an antibiotic and pain medication, but the patient is restricted to PCP and pharmacy. Margaret contacted her PCP this evening to attempt to get her to prescribe, but was not completed. She is requesting pain medication and antibiotics. She denies any nausea vomiting fevers orchills. Independent Historian None Review of External Notes I reviewed the telephone encounter from today. I reviewed the ED visit from 07/31/2025. Past Medical History Medical History and Problem List Depression Adjustment disorder Anxiety ADHD Medications Escitalopram Rizatriptan Ortho-cyclen Physical Exam Patient Vitals for the past 24 hrs: BP Temp Temp src Pulse Resp SpO2 08/19/25 1849 122/81 98.4 ??F (36.9 ??C) Temporal 76 18 100 % Physical Exam Constitutional: General: She is not in acute distress. Appearance: Normal appearance. She is not ill-appearing. HENT: Head: Normocephalic and atraumatic. Nose: Nose normal. No congestion. Mouth/Throat: Mouth: Mucous membranes are moist. Pharynx: Oropharynx is clear. Comments: Dry socket back left molar Eyes: Extraocular Movements: Extraocular movements intact. Conjunctiva/sclera: Conjunctivae normal. Pupils: Pupils are equal, round, and reactive to light. Cardiovascular: Rate and Rhythm: Normal rate and regular rhythm. Pulses: Normal pulses. Heart sounds: Normal heart sounds. No murmur heard. Pulmonary: Effort: Pulmonary effort is normal. No respiratory distress. Breath sounds: Normal breath sounds. No wheezing. Abdominal: General: Abdomen is flat. Bowel sounds are normal. Tenderness: There is no abdominal tenderness. There is no guarding or rebound. Musculoskeletal: General: No swelling or tenderness. Normal range of motion. Right lower leg: No edema. Left lower leg: No edema. Skin: General: Skin is warm. Capillary Refill: Capillary refill takes less than 2 seconds. Findings: No erythema or lesion. Neurological: General: No focal deficit present. Mental Status: She is alert and oriented to person, place, and time. Cranial Nerves: No cranial nerve deficit. Motor: No weakness. Diagnostics Lab Results Labs Ordered and Resulted from Time of ED Arrival to Time of ED Departure - No data to display Imaging No orders to display Independent Interpretation None ED Course Medications Administered Medications HYDROcodone-acetaminophen (NORCO) 5-325 MG per tablet 1 tablet (1 tablet Oral $Given 08/19/252108) Procedures Procedures Discussion of Management None ED Course ED Course as of 08/19/252116Aug 19, 20252054 I obtained the history and examined the patient as noted above. Additional Documentation None Medical Decision Making / Diagnosis [facility] Diagnoses: None MIPS None MDM Margaret Quick is a 25 year old female presenting emerged from a left-sided facial and tooth pain. Vitals reviewed she is hemodynamically stable overall well-appearing no acute distress on examination. Patient seen at her dentist today who prescribed metronidazole as well as [place]. Patient having trouble getting her medications she is stating increased pain some issue with pharmacy versus primary care provider needs to write insurance. Discussed with her that I am not going to represcribing these pain medications that she will likely run into the same issue but offered her a [place] here in the department. She will be given a [place] and discharged follow-up with her dentist primary care doctor and to fill her prescriptions. Patient was agreeable this plan. I did offer her Toradol for painrelief in the outpatient setting this was sent to her pharmacy. Disposition The patient was discharged. Diagnosis ICD-10-CM 1. Pain, dental K08.89 Discharge Medications Discharge Medication List as of 08/19/2025 9:07 PM START taking these medications Details ketorolac (TORADOL) 10 MG tablet Take 1 tablet (10 mg) by mouth every 6 hours as needed for moderate pain., Disp-20 tablet, R-0, E-Prescribe Scribe Disclosure: I, Monika Bentley, am serving as a scribe at 9:01 PM on 08/19/2025 to document services personally performed by Michele Vasquez MD based on my observations and the provider's statements to me. Michele Vasquez MD 08/19/252116 * Kuldeep Mora RN - 08/19/2025 6:49 PM CDT Arrives ambulatory and well appearing. States tooth removed and developed a dry socket. States was seen @ the dentist today and was given a prescription. States she is currently on a restricted program and unable to fill the script due to this program. States she has a lot of pain and wants her scripts filled. documented in this encounter Plan of Treatment Not on file documented as of this encounter Visit Diagnoses Diagnosis Pain, dental- Primary Unspecified disorder of the teeth and supporting structures documented in this encounter Administered Medications Inactive Administered Medications - up to 3 most recent administrations Medication Order MAR Action Action Date Dose Rate Site HYDROcodone-acetaminophen (NORCO) 5-325 MG per tablet 1 tablet 1 tablet, Oral, ONCE, On Sun08/19/25 at 2100, For 1 dose, Maximum acetaminophen dose from all sources= 75 mg/kg/day not to exceed 4 grams $Given 08/19/2025 9:09 PM CDT 1 tablet documented in this encounter Active and Recently Administered Medications Times are shown in CDT. Scheduled Medication Order 08/17/2025 08/18/2025 08/19/2025 HYDROcodone-acetaminophen (NORCO) 5-325 MG per tablet 1 tablet (COMPLETED) 1 tablet, Oral, ONCE, On Sun08/19/25 at 2100, For 1 dose, Maximum acetaminophen dose from all sources= 75 mg/kg/day not to exceed 4 grams 2108 ($Given - Provi valentina: Funmilayo Chacon RN) documented in this encounter Care Teams Community Liaison Relationship Specialty Start Date End Date Jaquelin Shipley MD [address] [place] [address] PCP - General Family Medicine 04/06/25 documented as of this encounter
--- OUTSIDE RECORDS SUMMARY | 2025-08-23 00:12 | XMS_ITS | Clinical Summary ---
Author Organization [facility] Address [address] [place] [address] Care Team Providers Care Grey Roll Worker Name Role Phone Elsewhere, Pcp Primary Care Provider Unavailabl e Source Comments Patient records contain information from all sites at [facility]. For routine questions regarding patient records, call [phone] during business hours, M-F 8:00 AM - 5:00 PM Central Time. Record requests for emergency care only can be directed to [phone] at any time.[facility] Allergies Active Allergy Reactions Criticality Noted Date [...] on file Legal Sex Female 9:23 AM ADMISSIONS ASSISTANT Gender Identity Not on file Sexual Orientation Not on file Last Filed Vital Signs Vital Sign Reading Time Taken Comments Blood Pressure 108/64 10/26/2024 2:34 AM ADMISSIONS ASSISTANT Pulse 68 10/26/2024 2:34 AM ADMISSIONS ASSISTANT Temperature 36.5 C (97.7 F) 10/26/2024 1:21 AM ADMISSIONS ASSISTANT Respiratory Rate 16 10/26/2024 2:34 AM ADMISSIONS ASSISTANT Oxygen Saturation 97% 10/26/2024 2:34 AM ADMISSIONS ASSISTANT Inhaled Oxygen Concentration - - Weight 66 kg (145 lb 8.1 oz) 10/26/2024 1:20 AM ADMISSIONS ASSISTANT Height 159 cm (5' 2.6) 08/29/2017 12:15 [...] (PHQ-9 for quality tracking) 11/19/2024 COVID-19 Vaccine (1 - 2024-2 6 season) 2025 Influenza Vaccine (#1) 2025 DTaP,Tdap,and [...] 1:37 AM CDT MKTO Varies (Vagina) 09/01/2021 1:43 PM CDT 09/01/2021 4:55 PM CDT Rocío May APRN, C.N.P., D.N.P. LAB M ICROBIOLOGY - GENERAL ORDERABLES Final Result [facility] [address] [place] [address], [facility] MKTO [facility] [place] [address] [place] [phone] from Last 3 Months or Most Recently Relevant to Health Maintenance Insurance ARE Care Teams Grey Roll Worker Relationship Specialty Start Date End Date Elsewhere, Pcp PCP - General 12/08/19
--- OUTSIDE RECORDS SUMMARY | 2025-08-23 00:13 | XMS_ITS | Clinical Summary ---
Author Organization [place] Address [address] [facility] [place] [address] Care Team Providers Care Paraeducator Name Role Phone Jaquelin Shipley MD Primary Care Provider Allergies Active Allergy Reactions Criticality Noted Date Comments Latex Rash Low 09/16/2019 Prednisone 03/30/2025 Medications norgestimate-et hinyl estradiol (ORTHO-CYCLEN, SPRINTEC) 0.25-35 MG-MCG per tabletIndicatio ns:Pt has home supply Take 1 tablet by mouth every evening Active escitalopram (LEXAPRO) 10 MG tabletIndicatio ns:Suicidal ideation Take 1 tablet (10 mg) by mouth daily 30 tablet 0 08/31/2015 Active ketorolac (TORADOL) 10 MG tablet Take 1 tablet (10 mg) by mouth every 6 hours as needed for moderate pain. 20 tablet 08/19/2025 Active Active Problems Problem Noted Date Diagnosed Date Suicidal ideation 08/27/2015 Encounters Date Type Department Care Team Description 08/19/2025 8:30 PM CDT - 08/19/2025 9:10 PM CDT Emergency [facility] Emergency Dept [address] [place] [address] Michele Vasquez MD Pain, dental (Primary Dx) Discharge Disposition: Home or Self Care 08/19/2025 Travel from Last 3 Months Social History Tobacco Use Types Packs/Day Years Used Date Smoking Tobacco: Never Assessed Adolescent Education Answer Date Record ed Getting School Help Needed Not on file 10/17 Comments Unknown Sex and Gender Information Value Date Recorded Sex Assigned at Not on file 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 Gender Identity Not on file Sexual Orientation [...] Ag & HIV-1/HIV-2 Ab Not Detected NR [facility] Blood specimen (specimen) 08/28/2015 7:48 AM CDT 08/28/2015 7:49 AM CDT Guillermo Torres MD LAB - BLOOD ORDERABLES Ashley l Result Performing Organization Address [facility]/ZIP Co de Phone Number [facility] [address] [place] [address] * Chlamydia trachomatis PCR (08/27/2015 2:30 PM CDT) Specimen Description Urine [facility] Chlamydia Trachomatis PCR Negative Negative for C. trachomatis rRNA by straightening press operator mediated amplification. A negative result by straightening press operator mediated amplification does not preclude the presence of C. trachomatis infection because results are dependent on proper and adequate collection, absence of inhibitors, and sufficient rRNA to be detected. NEG [facility] Urine specimen (specimen) 08/27/2015 2:30 PM CDT 08/27/2015 4:52 PM CDT Guillermo Torres MD LAB - MICRO GENERAL ORDERAB LES Final Result Performing Organization Address City/[facility] Co de Phone Number [facility] [address] [place] [address], [address] [address] from Last 3 Months or Most Recently Relevant to Health Maintenance Insurance [facility] Advance Directives For more information, please contact: [phone] * Full Code (Latest Code Status on File) Date Activated Date Inactivated Comments 08/27/2015 2:47 AM 09/01/2015 4:08 PM Care Teams Paraeducator Relationship Specialty Start Date End Date Jaquelin Shipley [place] [address] PCP - General Family Medicine 04/06/25
--- OUTSIDE RECORDS SUMMARY | 2025-08-23 00:13 | XMS_ITS | Clinical Summary ---
Author Organization [facility] Address [address] [place] [address] Care Team Providers Care Peoplesoft Hcm Consultant Name Role Phone Jaquelin Shipley MD Primary [...] 30mg per 24hrs. 3 Tablet 03/25/2025 Active ketorolac (TORADOL) 10 mg tabletIndicatio ns:Tooth infection Take 1 Tablet (10 mg) by mouth every 6 hours if needed for Pain for up to 5 days. Maximum of 40 mg in 24 hours. 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 Anxiety 12/14/2015 Adjustment disorder with mixed anxiety and depre ssed mood 12/14/2015 Encounters Date Type Department Care Team Description 08/21/2025 Telephone [facility] [address] [place] [address] Jaquelin Shipley MD Medication Problem 08/20/2025 7:13 PM CDT - 08/20/2025 8:00 PM CDT Emergency [facility] [address] [place] [address] Monae Paze MD Dry tooth socket (Primary Dx); Dental infection Discharge Disposition: Home Self Care 08/20/2025 Travel 08/20/2025 Nurse Triage [facility] [address] [place] [address] Jaquelin Shipley MD Tooth Ache 08/19/2025 Telephone [facility] [address] [place] [address] Jaquelin Shipley MD Medication Management (metronidazole 500 mg) 06/20/2025 Orders Only [facility] Scanner 1 scan: (1-Ord) DASIA, XR CHEST 2V, 06/20/2025 06/04/2025 Telephone [facility] [address] [place] [address] Jaquelin Shipley MD Referral (Neurology) from Last 3 Months Immunizations Immunization Administration [...] or yelled at (see row info)? No 08/20/2025 Interpersonal Safety Abuse 12 - 18 Not on file 08/20/2025 Interpersonal Safety Ambulatory Vulnerability No t on file 08/20/2025 Utilities Answer Date Recorded Do you have trouble paying f or utilities (for example, heat, electricity, water, phone)? 1 01/30/2025 Comments No Sex and Gender Information Value Date Recorded Sex Assigned at Not on file Legal Sex Female 3:25 PM HYDROPULPER Gender Identity Not on file Sexual Orientation Not on file Obstetrics History Para Term AB IAB SAB Ectopic Multiple Livin g Live Births 0 0 0 0 0 0 0 0 0 0 0 Last Filed Vital Signs Vital Sign Reading Time Taken Comments Blood Pressure 112/70 08/20/2025 7:55 PM CDT Pulse 71 08/20/2025 7:55 PM CDT Temperature 37 C (98.6 F) 08/20/2025 6:21 PM CDT Respiratory Rate 14 08/20/2025 6:21 PM CDT Oxygen Saturation 99% 08/20/2025 7:55 PM CDT Inhaled Oxygen Concentration - - Weight 61.5 kg (135 lb 9.6 oz) 08/20/2025 6:21 P M CDT Height 157.5 cm (5' 2) 08/20/2025 6:21 PM CDT Body Mass Index 24.8 08/20/2025 6:21 PM CDT Plan of Treatment Upcoming Encounters Date Type Department Care Team (Late st Contact Info) Description 08/26/2025 3:30 PM CDT Telemedicine [facility] [address] [place] [address] Jaquelin Shipley MD [address] [place] [address] Health Maintenance Due Date Last Done Comments [...] Comments SCAN-RADIOLOGY REPORT 06/20/2025 12:00 AM CDT LEAD CONSULTANT THIN PREP PAP SCREEN IMAGED Routine 05/11/2021 11:50 AM CDT Screening for cervical cancer from Last 3 Months or Most Recently Relevant to Health Maintenance Results * SCAN-RADIOLOGY REPORT (06/20/2025 12:00 AM CDT) Anatomical Region Laterality Modality Other us Scanner OTHER Final Result * LEAD CONSULTANT THIN PREP PAP SCREEN IMAGED [[id number]] (05/11/2021 11:50 AM CDT) Case Report Gynecologic Cytology Report Case: [id number] Authorizing Provider: Rubi Campbell MD Collected: 05/11/2021 1150 Ordering Location: [facility] Received: 05/11/2021 1204 Clinic First Screen: Baccam, Minie Rescreen: Tanesha Kuo Specimen: LEAD CONSULTANT ThinPrep Vial Screening, Cervical 05/23/2021 10:29 AM CDT [facility] [employer] [facility] INTERPRETATION/ RESULT NEGATIVE FOR INTRAEPITHELIAL LESION OR MALIGNANCY (NIL) (none) 05/23/2021 10:29 AM CDT [facility] [employer] [facility] at 1029 CDT SPECIMEN ADEQUACY Satisfactory for evaluation Endocervical component present 05/23/2021 10:29 AM CDT [facility] [employer] [facility] HPV REQUEST HPV if ASCUS 05/23/2021 10:29 AM CDT [facility] [employer] Date of LMP 05/01/21 05/23/2021 10:29 AM CDT [facility] [employer] Last Pap Date n/a 05/23/2021 10:29 AM CDT [facility] Last Pap Result First Pap/Unknown 10:29 AM CDT [facility] [employer] Abnormal Pap or Modena Bx in last 5 years No 05/23/2021 10:29 AM CDT [facility] [employer] Menstrual Status Regular Periods 05/23/2021 10:29 AM CDT [facility] [employer] Modena Bx Done Today No 05/23/2021 10:29 AM CDT [facility] Additional Information None given 05/23/2021 10:29 AM CDT [facility] [employer] Comment: Cytology is screened at [facility] - [address], [place] [address] and [facility] - [address] [place] [address] and [facility] - [address] [place] [address] Interpreted at [facility] [employer] [facility] - [address], [place] [address] Automated Review Successful 05/23/2021 10:29 AM CDT [facility] [employer] [facility] Comment:Specimen processed s uccessfully by automated testing coordinator device, ThinPrep Imaging System, [employer] Note The pap test is a [...] and malignant lesions. 05/23/2021 10:29 AM CDT [facility]AT[facility] Other (Cervical) Non-Blood / Unknown 05/11/2021 11:50 AM CDT 05/11/2021 12:04 PM CDT us Rubi Campbell MD PATHOLOGY/CYTOLOGY Final Resu lt [facility]-C[facility]AL LABORATORY [address] [place] [address], from Last 3 Months or Most Recently Relevant to Health Maintenance Insurance [facility] Care Teams Peoplesoft Hcm Consultant Relationship Specialty Start Date End Date Jaquelin Shipley MD [address] [place] [address] PCP - General Family Practice 08/20/25
--- OUTSIDE RECORDS SUMMARY | 2025-08-23 00:13 | XMS_ITS | Clinical Summary ---
Author Organization [facility] er Address [address] [place] [address] Care Team Providers Care 21 Dealer Name Role Phone Unavailable Primary Care Provider Unavailabl e Immunizations Immunization Administration Dates Next Due PPD Test 12/15/2024 Social History Tobacco Use Types Packs/Day Years Used Date Smoking Tobacco: Never Assessed Comments Unknown Sex and Gender Information Value Date Recorded Sex Assigned at Not on file Legal Sex Female 11:12 AM TALLOW PUMPER Gender Identity Not on file Sexual Orientation [...] patient's age to complete this topic Insurance [facility] [employer]
--- OUTSIDE RECORDS SUMMARY | 2025-08-23 00:13 | XMS_ITS | Encounter Summary ---
Author Organization [facility] Address [address] [facility] [place] [address] Care Team Providers Care Auto Motor Mechanic Name Role Phone Jaquelin Shipley MD Primary Care Provider Encounter Details Date Type Department Care Team (Latest Contact Info) Description 08/19/2025 Travel Social History Tobacco Use Types Packs/Day Years Used Date Smoking Tobacco: Never Assessed Adolescent Education Answer Date Record ed Getting School Help Needed Not on file 10/17 Comments Unknown Sex and Gender Information Value Date Recorded Sex Assigned at Not on file Legal Sex Female 4:31 AM CREDIT SUPPORT COUNSELOR Gender Identity Not on file Sexual Orientation Not on file documented as of this encounter Plan of Treatment Not on file documented as of this encounter Visit Diagnoses Not on filedocumented in this encounter Care Teams Auto Motor Mechanic Relationship Specialty Start Date End Date Jaqu[place] [address] PCP - General Family Medicine 04/06/25 documented as of this encounter
[2025-08-23 01:11] VITALS: BP 125/81; PULSE 75; RESP 18; TEMP 36.8; O2SAT 99; BMI 24.7
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
[2025-08-23] MEDS: LIDOCAINE 5% PATCH 1 PATCH TRANSDERMA (02:16)
[2025-08-23 02:21] VITALS: BP 129/79; PULSE 79; RESP 18; TEMP 36.8; O2SAT 99
[2025-08-23 02:22] VITALS: BP 129/79; PULSE 79; RESP 18; TEMP 36.8
== END 2025-08-23 02:22 | disposition home or self-care (01) ==
PROVIDERS: Emergency Provider Emergency Medicine; PCP Student in an Organized Health Care Education/Training Program
DX: M54.6 Pain in thoracic spine (principal)
CPT/HCPCS: 99283; 99284; A9270

== ENCOUNTER 2025-08-25 23:46 | Emergency (ER) | payer MEDICAID, SELFPAY ==
--- OUTSIDE RECORDS SUMMARY | 2025-08-19 20:30 | XMS_ITS | Encounter Summary ---
Author Organization [place] Address [address] [facility] [place] [address] Care Team Providers Care Patient Care Secretary Name Role Phone Jaquelin Shipley MD Primary Care Provider [phone] Reason for Visit * Reason Comments Dental Pain Medication Refill Encounter Details Date Type Department Care Team (Late st Contact Info) Description 08/19/2025 8:30 PM CDT - 08/19/2025 9:10 PM CDT Emergency [facility] Emergency Dept [address] [place] [address] Michele Vasquez MD [facility] [address] [facility] [place] [id number] Pain, dental (Primary Dx) Discharge Disposition: Home or Self Care Social History Tobacco Use Types Packs/Day Years Used Date Smoking Tobacco: Never Assessed Adolescent Education Answer Date Record ed Getting School Help Needed Not on file 10/17 Comments Unknown Sex and Gender Information Value Date Recorded Sex Assigned at Not on file 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 (acetaminophen), including Vicodin??, Tylenol #3??, [place]??, Lortab??, and Percocet??. You should not take [...] Documentation None Medical Decision Making / Diagnosis [facility] Diagnoses: None MIPS None MDM Margaret Quick is a 25 year old female presenting emerged from a left-sided facial and tooth pain. Vitals reviewed she is hemodynamically stable overall well-appearing no acute distress on examination. Patient seen at her dentist today who prescribed metronidazole as well as [place]. Patient having trouble getting her medications she is stating increased pain some issue with pharmacy versus primary care provider needs to write insurance. Discussed with her that I am not going to represcribing these pain medications that she will likely run into the same issue but offered her a [place] here in the department. She will be given a [place] and discharged follow-up with her dentist primary [...] RN) documented in this encounter Care Teams Patient Care Secretary Relationship Specialty Start Date End Date Jaquelin Shipley MD [address] [place] [address] PCP - General Family Medicine 04/06/25 documented as of this encounter
--- OUTSIDE RECORDS SUMMARY | 2025-08-19 20:30 | XMS_ITS | Encounter Summary ---
Author Organization [place] Address [address] [facility] [place] [address] Care Team Providers Care Adjunct Trainer Name Role Phone Jaquelin Shipley MD Primary Care Provider Reason for Visit * Reason Comments Dental Pain Medication Refill Encounter Details Date Type Department Care Team (Late st Contact Info) Description 08/19/2025 8:30 PM CDT - 08/19/2025 9:10 PM CDT Emergency [facility] Emergency Dept [address] [place] [address] Michele Vasquez MD [facility] [address] [facility] [place] [id number] Pain, dental (Primary Dx) Discharge Disposition: Home or Self Care Social History Tobacco Use Types Packs/Day Years Used Date Smoking Tobacco: Never Assessed Adolescent Education Answer Date Record ed Getting School Help Needed Not on file 10/17 Comments Unknown Sex and Gender Information Value Date Recorded Sex Assigned at Not on file 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 (acetaminophen), including Vicodin??, Tylenol #3??, [place]??, Lortab??, and Percocet??. You should not take [...] Documentation None Medical Decision Making / Diagnosis [facility] Diagnoses: None MIPS None MDM Margaret Quick is a 25 year old female presenting emerged from a left-sided facial and tooth pain. Vitals reviewed she is hemodynamically stable overall well-appearing no acute distress on examination. Patient seen at her dentist today who prescribed metronidazole as well as [place]. Patient having trouble getting her medications she is stating increased pain some issue with pharmacy versus primary care provider needs to write insurance. Discussed with her that I am not going to represcribing these pain medications that she will likely run into the same issue but offered her a [place] here in the department. She will be given a [place] and discharged follow-up with her dentist primary [...] RN) documented in this encounter Care Teams Adjunct Trainer Relationship Specialty Start Date End Date Jaquelin Shipley MD [address] [place] [address] PCP - General Family Medicine 04/06/25 documented as of this encounter
--- OUTSIDE RECORDS SUMMARY | 2025-08-25 23:48 | XMS_ITS | Clinical Summary ---
Author Organization [facility] Address [address] [place] [address] Care Team Providers Care Machines Technician Name Role Phone Elsewhere, Pcp Primary Care Provider Unavailabl e Source Comments Patient records contain information from all sites at [facility]. For routine questions regarding patient records, call [phone] during business hours, M-F 8:00 AM - 5:00 PM Central Time. Record requests for emergency care only can be directed to [phone] at any time.[facility] Allergies Active Allergy Reactions Criticality Noted Date [...] on file Legal Sex Female 9:23 AM FLOOR COVERINGS SALESPERSON Gender Identity Not on file Sexual Orientation Not on file Last Filed Vital Signs Vital Sign Reading Time Taken Comments Blood Pressure 108/64 10/26/2024 2:34 AM FLOOR COVERINGS SALESPERSON Pulse 68 10/26/2024 2:34 AM FLOOR COVERINGS SALESPERSON Temperature 36.5 C (97.7 F) 10/26/2024 1:21 AM FLOOR COVERINGS SALESPERSON Respiratory Rate 16 10/26/2024 2:34 AM FLOOR COVERINGS SALESPERSON Oxygen Saturation 97% 10/26/2024 2:34 AM FLOOR COVERINGS SALESPERSON Inhaled Oxygen Concentration - - Weight 66 kg (145 lb 8.1 oz) 10/26/2024 1:20 AM FLOOR COVERINGS SALESPERSON Height 159 cm (5' 2.6) 08/29/2017 12:15 [...] [facility] [address] [place] [address], [facility] [address] [place] [phone] from Last 3 Months or Most Recently Relevant to Health Maintenance Insurance ARE Care Teams Machines Technician Relationship Specialty Start Date End Date Elsewhere, Pcp PCP - General 12/08/19
--- OUTSIDE RECORDS SUMMARY | 2025-08-25 23:48 | XMS_ITS | Clinical Summary ---
Author Organization [facility] er Address [address] [place] [address] Care Team Providers Care Principal Clerk Name Role Phone Unavailable Primary Care Provider Unavailabl e Immunizations Immunization Administration Dates Next Due PPD Test 12/15/2024 Social History Tobacco Use Types Packs/Day Years Used Date Smoking Tobacco: Never Assessed Comments Unknown Sex and Gender Information Value Date Recorded Sex Assigned at Not on file Legal Sex Female 11:12 AM PUMP INSTALLATION AND SERVICER Gender Identity Not on file Sexual Orientation [...] patient's age to complete this topic Insurance [facility] [employer]
--- OUTSIDE RECORDS SUMMARY | 2025-08-25 23:48 | XMS_ITS | Encounter Summary ---
Author Organization [facility] Address [address] [facility] [place] [address] Care Team Providers Care Administrative Volunteer Name Role Phone Jaquelin Shipely MD Primary Care Provider Encounter Details Date [...] on file Legal Sex Female 4:31 AM WHEEL BRAIDER Gender Identity Not on file Sexual Orientation Not on file documented as of this encounter Plan of Treatment Not on file documented as of this encounter Visit Diagnoses Not on filedocumented in this encounter Care Teams Administrative Volunteer Relationship Specialty Start Date End Date Jaquelin Ship[place] [address] PCP - General Family Medicine 04/06/25 documented as of this encounter
--- OUTSIDE RECORDS SUMMARY | 2025-08-25 23:48 | XMS_ITS | Clinical Summary ---
Author Organization [facility] Address [address] [place] [address] Care Team Providers Care Lead Architect Name Role Phone Jaquelin Shipley MD Primary [...] in 24 hours. 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 Anxiety 12/14/2015 Adjustment disorder with mixed anxiety and depre ssed mood 12/14/2015 Encounters Date Type Department Care Team Description 08/24/2025 1:00 PM CDT Office Visit [facility] [address] [place] [address] Jaquelin Shipley MD Musculoskeletal Problem (muscle spasms, nausea - with antibiotic /back pain ); Medication Management (Flexeril - ) 08/24/2025 Travel 08/21/2025 Telephone [facility] [address] [place] [address] Jaquelin Shipley MD Medication Problem 08/20/2025 7:13 PM CDT - 08/20/2025 8:00 PM CDT Emergency [facility] [address] [place] [address] Monae Paez MD Dry tooth socket (Primary Dx); Dental infection Discharge Disposition: Home Self Care 08/20/2025 Travel 08/20/2025 Nurse Triage [facility] [address] [place] [address] Jaquelin Shipley MD Tooth Ache 08/19/2025 Telephone [facility] [address] [place] [address] Jaquelin Shipley MD Medication Management (metronidazole 500 mg) 06/20/2025 Orders Only [facility] Scanner 1 scan: (1-Ord) DASIA, EARLINE CHEST 2V, 06/20/2025 06/04/2025 Telephone [facility] [address] [place] [address] Jaquelin Shipley MD Referral (Neurology) from Last [...] on file Legal Sex Female 3:25 PM DRUM REEL CUTTER Gender Identity Not on file Sexual Orientation Not on file Obstetrics History Para Term AB IAB SAB Ectopic Multiple Livin g Live Births 0 0 0 0 0 0 0 0 0 0 0 Last Filed Vital Signs Vital Sign Reading Time Taken Comments Blood Pressure 131/84 08/24/2025 1:21 PM CDT Pulse 82 08/24/2025 1:21 PM CDT Temperature 37 C (98.6 F) 08/20/2025 6:21 PM CDT Respiratory Rate 14 08/20/2025 6:21 PM CDT Oxygen Saturation 99% 08/24/2025 1:21 PM CDT Inhaled Oxygen Concentration - - Weight 62.6 kg (138 lb) 08/24/2025 1:21 PM CDT Height 157.5 cm (5' 2) 08/20/2025 6:21 PM CDT Body Mass Index 25.24 08/20/2025 6:21 PM CDT Plan of Treatment Upcoming Encounters Date Type Department Care Team (Late st Contact Info) Description 08/26/2025 3:30 PM CDT Telemedicine [facility] [address] [place] [address] Jaquelin Shipley MD [address] [place] [address] Health Maintenance Due Date Last Done Comments HIV for age 15-65 2014 Hepatitis C screening for age 18-79 2017 Pap test for age 21-65 05/11/2024 05/11/2021 BMI (ht and wt on same day) for age 18+ 02/03/2025 02/04/2024, 12/28/2023, 07/26/2023, Additional history exists Depression screening for age 12+ 02/07/2025 02/08/2024, 02/04/2024, 02/04/2024, Additional history exists COVID-19 vaccine series (2023- season) 2025 Influenza Vaccine (#1) 2025 Tetanus [...] Comments SCAN-RADIOLOGY REPORT 06/20/2025 12:00 AM CDT DRILLER AND BROACHER THIN PREP PAP SCREEN IMAGED Routine 05/11/2021 11:50 AM CDT Screening for cervical cancer from Last 3 Months or Most Recently Relevant to Health Maintenance Results * SCAN-RADIOLOGY REPORT (06/20/2025 12:00 AM CDT) Anatomical Region Laterality Modality Other us Scanner OTHER Final Result * DRILLER AND BROACHER THIN PREP PAP SCREEN IMAGED [[id number]] (05/11/2021 11:50 AM CDT) Case Report Gynecologic Cytology Report Case: [id number] Authorizing Provider: Rubi Campbell MD Collected: 05/11/2021 1150 Ordering Location: [facility] Received: 05/11/2021 1204 Clinic First Screen: Baccam, Minie Rescreen: Tanesha Kuo Specimen: DRILLER AND BROACHER ThinPrep Vial Screening, Cervical 05/23/2021 10:29 AM CDT [facility] INTERPRETATION/ RESULT NEGATIVE FOR INTRAEPITHELIAL LESION OR MALIGNANCY (NIL) (none) 05/23/2021 10:29 AM CDT [facility] at 1029 CDT SPECIMEN ADEQUACY Satisfactory for evaluation Endocervical component present 05/23/2021 10:29 AM CDT [facility] ENTRAL LABORATORY HPV REQUEST HPV if ASCUS 05/23/2021 10:29 AM CDT [facility] Date of LMP 05/01/21 05/23/2021 10:29 AM CDT [facility] EN[facility]AL LABOR[facility]ORY Last Pap Date n/a 05/23/2021 10:29 AM CDT [facility] LABORATORY-C ENTRAL LABORATORY Last Pap Result First Pap/Unknown 10:29 AM CDT [facility] ENTRAL LABORATORY Abnormal Pap or [place] Bx in last 5 years No 05/23/2021 10:29 AM CDT [facility]-C ENTRAL LABORATORY Menstrual Status Regular Periods 05/23/2021 10:29 AM CDT [facility] ENTRAL LABORATORY [place] Bx Done Today No 05/23/2021 10:29 AM CDT [facility] ENTRAL LABORATORY Additional Information None given 05/23/2021 10:29 AM CDT [facility] ENTRAL LABORATORY Comment: Cytology is screened at [facility], Central Laboratory - [address], [place] [address] and [facility] Laboratory - [address], [place] [address] and [facility] - [address], [place] [address] Interpreted at [facility] [place] [facility], Central Laboratory - [address], [place] [address] Automated Review Successful 05/23/2021 10:29 AM CDT [facility]-C EN[facility]AL LABORATORY Comment:Specimen processed s uccessfully by automated fitter type bar and segment device, ThinPrep Imaging System, [employer] Note The pap test is a [...] and malignant lesions. 05/23/2021 10:29 AM CDT [facility]-C ENTRAL LABORATORY Other (Cervical) Non-Blood / Unknown 05/11/2021 11:50 AM CDT 05/11/2021 12:04 PM CDT Rubi Campbell MD PATHOLOGY/CYTOLOGY Final Resu lt [facility] LABORATORY-CENTRAL LABORATORY [address] [place] [address], [place] from Last 3 Months or Most Recently Relevant to Health Maintenance Insurance [facility] Care Teams Lead Architect Relationship Specialty Start Date End Date Jaquelin Ship[place] [address] [place] [address] PCP - General Family Practice 08/20/25
--- OUTSIDE RECORDS SUMMARY | 2025-08-25 23:48 | XMS_ITS | Clinical Summary ---
Author Organization [facility] Address [address] [facility] 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 Blood specimen (specimen) 08/28/2015 7:48 AM CDT 08/28/2015 7:49 AM CDT Guillermo Torres MD LAB - BLOOD ORDERABLES Ashley l Result Performing Organization Address [facility]/ZIP Co de Phone Number [facility] [address] [place] [address] * Chlamydia trachomatis PCR (08/27/2015 2:30 PM CDT) Specimen Description Urine [facility] Chlamydia Trachomatis PCR Negative Negative for C. trachomatis rRNA by telecom field technician mediated amplification. A negative result by telecom field technician mediated amplification does not preclude the presence of C. trachomatis infection because results are dependent on proper and adequate collection, absence of inhibitors, and sufficient rRNA to be detected. NEG [facility] Urine specimen (specimen) 08/27/2015 2:30 PM CDT 08/27/2015 4:52 PM CDT Guillermo Torres MD LAB - MICRO GENERAL ORDERAB LES Final Result Performing Organization Address City/[facility] Co de Phone Number [facility] [address] [place] [address], [address] [address] from Last 3 Months or Most Recently Relevant to Health Maintenance [facility] Advance Directives For more information, please contact: [phone] * Full Code (Latest Code Status on File) Date Activated Date Inactivated Comments 08/27/2015 2:47 AM 09/01/2015 4:08 PM Care Teams Caul Puller Relationship Specialty Start Date End Date Jaquelin Shipley [place] [address] PCP - General Family Medicine 04/06/25
[2025-08-25 23:56] VITALS: BP 123/88; PULSE 86; RESP 16; TEMP 36.3; O2SAT 99; BMI 24.7
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
--- NOTE | 2025-08-26 01:25 | CRLHL7_ITS ---
For Patients: As a result of the Century Cures Act, medical imaging exams and procedure reports are released immediately into your electronic medical record. You may view this report before your referring provider. If you have questions, please contact your health care provider. INDICATION: Back pain. TECHNIQUE: Thoracic spine 3 views. COMPARISON: None. FINDINGS: Bones: Alignment is normal. Vertebral body heights are maintained. No acute displaced fracture. Joints: Disc spaces and facets are unremarkable. Soft tissues: Unremarkable. IMPRESSION: Unremarkable thoracic spine. Dictated by Rey Preston MD @ 08/26/2025 1:54:03 AM (Electronically Signed)
--- OUTSIDE RECORDS SUMMARY | 2025-08-26 01:32 | XMS_ITS | Clinical Summary ---
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
--- OUTSIDE RECORDS SUMMARY | 2025-08-26 01:32 | XMS_ITS | Clinical Summary ---
Author Organization [facility] Address [address] [place] [address] Care Team Providers Care Actuarial Associate Name Role Phone Jaquelin Shipley MD Primary [...] Description 08/24/2025 1:00 PM CDT Office Visit [facility] [address] [place] [address] Jaquelin Shipley MD Musculoskeletal Problem (muscle spasms, nausea - with antibiotic /back pain ); Medication Management (Flexeril - ) 08/24/2025 Travel 08/21/2025 Telephone [facility] [address] [place] [address] Jaquelin Shipley MD Medication Problem 08/20/2025 7:13 PM CDT - 08/20/2025 8:00 PM CDT Emergency [facility] [address] [place] [address] Monae Paez MD Dry tooth socket (Primary Dx); Dental infection Discharge Disposition: Home Self Care 08/20/2025 Travel 08/20/2025 Nurse Triage [facility] [address] [place] [address] Jaquelin Shipley MD Tooth Ache 08/19/2025 Telephone [facility] [address] [place] [address] Jaquelin Shipley MD Medication Management (metronidazole 500 mg) 06/20/2025 Orders Only [facility] HIM SERVICES Scanner 1 scan: (1-Ord) DASIA, EARLINE CHEST 2V, 06/20/2025 06/04/2025 Telephone [facility] [address] [place] [address] Jaquelin Shipley MD Referral (Neurology) from Last [...] on file 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 Gender Identity Not on file Sexual [...] Info) Description 08/26/2025 3:30 PM CDT Telemedicine [facility] [address] [place] [address] Jaquelin Shipley MD [address] [place] [address] Health Maintenance Due Date Last Done Comments [...] Comments SCAN-RADIOLOGY REPORT 06/20/2025 12:00 AM CDT TOOL COORDINATOR THIN PREP PAP SCREEN IMAGED Routine 05/11/2021 11:50 AM CDT Screening for cervical cancer from Last 3 Months or Most Recently Relevant to Health Maintenance Results * SCAN-RADIOLOGY REPORT (06/20/2025 12:00 AM CDT) Anatomical Region Laterality Modality Other us Scanner OTHER Final Result * TOOL COORDINATOR THIN PREP PAP SCREEN IMAGED [[id number]] (05/11/2021 11:50 AM CDT) Case Report Gynecologic Cytology Report Case: [id number] Authorizing Provider: Rubi Campbell MD Collected: 05/11/2021 1150 Ordering Location: [facility] Received: 05/11/2021 1204 Clinic First Screen: Baccam, Minie Rescreen: Tanesha Kuo Specimen: TOOL COORDINATOR ThinPrep Vial Screening, Cervical 05/23/2021 10:29 AM CDT [facility] ENTRAL LABORAT[facility] INTERPRETATION/ RESULT NEGATIVE FOR INTRAEPITHELIAL LESION OR MALIGNANCY (NIL) (none) 05/23/2021 10:29 AM CDT [facility] at 1029 CDT SPECIMEN ADEQUACY Satisfactory for evaluation Endocervical component present 05/23/2021 10:29 AM CDT [facility] ENTRAL LABORATORY HPV REQUEST HPV if ASCUS 05/23/2021 10:29 AM CDT [facility] Date of LMP 05/01/21 05/23/2021 10:29 AM CDT [facility] ENTRAL LABORATORY Last Pap Date n/a 05/23/2021 10:29 AM CDT [facility] LABORATORY-C ENTRAL LABORATORY Last Pap Result First Pap/Unknown 10:29 AM CDT [facility]-C ENTRAL LABORATORY Abnormal Pap or [place] Bx in last 5 years No 05/23/2021 10:29 AM CDT [facility]-C ENTRAL LABORATORY Menstrual Status Regular Periods 05/23/2021 10:29 AM CDT [facility] ENTRAL LABORATORY [place] Bx Done Today No 05/23/2021 10:29 AM CDT [facility] ENTRAL LABORATORY Additional Information None given 05/23/2021 10:29 AM CDT [facility]-C ENTRAL LABORATORY Comment: Cytology is screened at [facility], Central Laboratory - [address], [place] [address] and [facility] - [address], [place] [address] [facility] Laboratory - [address], [place] [address] Interpreted at [facility], Central Laboratory - [address], [place] [address] Automated Review Successful 05/23/2021 10:29 AM CDT [facility] LAB[facility]AT[facility]-C ENTRAL LABORATORY Comment:Specimen processed s uccessfully by automated pattern drafter device, ThinPrep Imaging System, [employer] Note The pap test is a [...] and malignant lesions. 05/23/2021 10:29 AM CDT [facility]-C ENTRAL LABORATORY Other (Cervical) Non-Blood / Unknown 05/11/2021 11:50 AM CDT 05/11/2021 12:04 PM CDT Rubi Campbell MD PATHOLOGY/CYTOLOGY Final Resu lt [facility] LABORATORY-CENTRAL LABORATORY [address] [place] [address], [place] from Last 3 Months or Most Recently Relevant to Health Maintenance Insurance [facility] Care Teams Actuarial Associate Relationship Specialty Start Date End Date Jaquelin Shipley [place] [address] PCP - General Family Practice 08/20/25
--- OUTSIDE RECORDS SUMMARY | 2025-08-26 01:32 | XMS_ITS | Encounter Summary ---
Author Organization [facility] Address [address] [facility] 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
--- OUTSIDE RECORDS SUMMARY | 2025-08-26 01:32 | XMS_ITS | Clinical Summary ---
Author Organization [facility] Address [address] [place] [id number] Care Team Providers Care Flexible Babysitter Name Role Phone Elsewhere, Pcp Primary Care Provider Unavailabl e Source Comments Patient records contain information from all sites at [facility]. For routine questions regarding patient records, call [phone] during business hours, M-F 8:00 AM - 5:00 PM Central Time. 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 Gender Identity Not on file Sexual Orientation Not on file Last Filed Vital Signs Vital Sign Reading Time Taken Comments Blood Pressure 108/64 10/26/2024 2:34 AM [employer]400 PROGRAMMER ANALYST Pulse 68 10/26/2024 2:34 AM AS400 PROGRAMMER ANALYST Temperature 36.5 C (97.7 F) 10/26/2024 1:21 AM AS400 PROGRAMMER ANALYST Respiratory Rate 16 10/26/2024 2:34 AM AS400 PROGRAMMER ANALYST Oxygen Saturation 97% 10/26/2024 2:34 AM AS400 PROGRAMMER ANALYST Inhaled Oxygen Concentration - - Weight 66 kg (145 lb 8.1 oz) 10/26/2024 1:20 AM AS400 PROGRAMMER ANALYST Height 159 cm (5' 2.6) 08/29/2017 12:15 [...] M ICROBIOLOGY - GENERAL ORDERABLES Final Result [facility] [address] [place] [address], [facility] [place] [address] [place] [id number] from Last 3 Months or Most Recently Relevant to Health Maintenance Insurance ARE Care Teams Flexible Babysitter Relationship Specialty Start Date End Date Elsewhere, Pcp PCP - General 12/08/19
--- OUTSIDE RECORDS SUMMARY | 2025-08-26 01:32 | XMS_ITS | Clinical Summary ---
Author Organization [facility] Address [address] [facility] 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 trachomatis rRNA by it risk analyst mediated amplification. A negative result by it risk analyst mediated amplification does not preclude the presence of C. trachomatis infection because results are dependent on proper and adequate collection, absence of inhibitors, and sufficient rRNA to be detected. NEG [facility] Urine specimen (specimen) 08/27/2015 2:30 PM CDT 08/27/2015 4:52 PM CDT Guillermo Torres MD LAB - MICRO GENERAL ORDERAB LES Final Result Performing Organization Address City/[facility] Co de Phone Number [facility] [address] [place] [address], [address] [address] from Last 3 Months or Most Recently Relevant to Health Maintenance [facility] Directives For more information, please contact: [phone] * Full Code (Latest Code Status on File) Date Activated Date Inactivated Comments 08/27/2015 2:47 AM 09/01/2015 4:08 PM Care Teams Tree Cutter Relationship Specialty Start Date End Date Jaquelin Ship[place] [address] [place] [address] PCP - General Family Medicine 04/06/25
[2025-08-26] MEDS: LIDOCAINE 5% PATCH 1 PATCH TRANSDERMA (01:41)
== END 2025-08-26 02:24 | disposition home or self-care (01) ==
PROVIDERS: Emergency Provider Emergency Medicine; PCP Student in an Organized Health Care Education/Training Program
DX: M54.6 Pain in thoracic spine (principal)
CPT/HCPCS: 72070; 96372; 99284; 99285; A9270